=== PATIENT | female | born 1990 | race Caucasian/White ===

== ENCOUNTER 2017-02-07 01:31 | Emergency (ER) | payer OTHER ==
[2017-02-07] MEDS ORDERED: HYDROcodone/APAP 5-325MG 1 EACH TAB PO STA (01:44)
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
--- NOTE | 2017-02-07 02:31 | XR ---
ADDENDUM - Added by Yoseph Bergeron MD on 02/07/2017 2:31 AM (-07:00) INDICATION: 26-year-old female with pain. COMPARISON: None. EXAM: RIGHT ELBOW, 3 views INDICATION: COMPARISON: FINDINGS: 3 views of the right elbow are obtained. Bony structures are intact. Bone mineralization is within normal limits. No effusion noted. Joint spaces are preserved. Soft tissues are within normal limits. No radio-opaque foreign bodies. IMPRESSION: No acute fracture or subluxation identified.
[2017-02-07 02:54] VITALS: BP 122/65; PULSE 76; RESP 18; TEMP 98
== END 2017-02-07 02:54 | disposition home or self-care (01) ==
LOC: EC 01:31
DX: S69.90XA Unspecified injury of unspecified wrist, hand and finger(s), initial encounter (principal); M25.521 Pain in right elbow; F17.200 Nicotine dependence, unspecified, uncomplicated; Z88.1 Allergy status to other antibiotic agents; Z88.6 Allergy status to analgesic agent; Z88.8 Allergy status to other drugs, medicaments and biological substances; W18.30XA Fall on same level, unspecified, initial encounter
CPT/HCPCS: 99283

== ENCOUNTER 2018-03-06 12:03 | Emergency (ER) | payer OTHER ==
[2018-03-06 12:30] VITALS: RESP 18
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
--- NOTE | 2018-03-06 13:54 | XR ---
EXAMINATION TYPE: XR chest 2V DATE OF EXAM ORDERED: 03/06/2018 HISTORY: Pain. REFERENCE: None. FINDINGS: The lungs are clear. Pleural spaces are clear. Heart size is normal. IMPRESSION: NORMAL CHEST.
--- NOTE | 2018-03-06 13:55 | XR ---
EXAMINATION TYPE: XR humerus LT , 2 VIEWS DATE OF EXAM ORDERED: 03/06/2018 HISTORY: Pain. COMPARISON: None. FINDINGS: No long bone fracture is seen. No other acute osseous lesion is identified. IMPRESSION: NORMAL HUMERUS.
[2018-03-06] MEDS ORDERED: LORazepam 1 MG TAB PO STA ×2 (14:10→15:43)
[2018-03-06 15:52] VITALS: BP 123/66; PULSE 80; TEMP 98.1
== END 2018-03-06 15:52 | disposition home or self-care (01) ==
LOC: EC 12:03
DX: S11.91XA Laceration without foreign body of unspecified part of neck, initial encounter (principal); F17.200 Nicotine dependence, unspecified, uncomplicated; Z85.41 Personal history of malignant neoplasm of cervix uteri; Z98.890 Other specified postprocedural states; Z88.1 Allergy status to other antibiotic agents; Z88.4 Allergy status to anesthetic agent; Z88.6 Allergy status to analgesic agent; Z88.8 Allergy status to other drugs, medicaments and biological substances; T71.9XXA Asphyxiation due to unspecified cause, initial encounter; Y04.0XXA Assault by unarmed brawl or fight, initial encounter
CPT/HCPCS: 70450; 70486; 71046; 72125; 99284

== ENCOUNTER 2019-06-21 07:37 | Emergency (ER) | payer OTHER ==
[2019-06-21 07:44] VITALS: RESP 16
[2019-06-21] MEDS ORDERED: LIDOCAINE 1% INJ 10MG/ML (20 ML MDV) SQ ONE (07:47)
[2019-06-21] MEDS ORDERED: DIPH,PERTUS(ACELL)TETVAC-LF 0.5 ML VIAL IM ONE (08:24)
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
[2019-06-21] MEDS ORDERED: ACET/COD 300 MG/30 MG STARTER PACK 6 TAB BTL PO STA (09:02)
[2019-06-21 09:39] VITALS: BP 108/80; PULSE 79; TEMP 98.5
== END 2019-06-21 09:21 | disposition home or self-care (01) ==
LOC: EC 07:37
DX: S01.511A Laceration without foreign body of lip, initial encounter (principal); T74.11XA Adult physical abuse, confirmed, initial encounter; F41.9 Anxiety disorder, unspecified; F31.9 Bipolar disorder, unspecified; Z23 Encounter for immunization; F17.200 Nicotine dependence, unspecified, uncomplicated; Z79.899 Other long term (current) drug therapy; Z88.1 Allergy status to other antibiotic agents; Z88.6 Allergy status to analgesic agent; Z88.8 Allergy status to other drugs, medicaments and biological substances; Z85.41 Personal history of malignant neoplasm of cervix uteri; Y04.0XXA Assault by unarmed brawl or fight, initial encounter; Y92.009 Unspecified place in unspecified non-institutional (private) residence as the place of occurrence of the external cause; Y07.03 Male partner, perpetrator of maltreatment and neglect
CPT/HCPCS: 70486; 70450; 90715; 90471; 99284; 12013; J2001

== ENCOUNTER 2019-06-25 20:00 | Emergency (ER) | payer OTHER ==
[2019-06-25 20:04] VITALS: BP 126/77; TEMP 98.2
[2019-06-25] MEDS ORDERED: LIDOCAINE 1% INJ 10MG/ML (20 ML MDV) SQ ONE (21:09)
[2019-06-25] MEDS ORDERED: ACET/COD 300 MG/30 MG STARTER PACK 6 TAB BTL PO STA (22:18)
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
[2019-06-25 22:28] VITALS: PULSE 93; RESP 18
== END 2019-06-25 22:25 | disposition home or self-care (01) ==
LOC: EC 20:00
DX: S01.511D Laceration without foreign body of lip, subsequent encounter (principal); F41.9 Anxiety disorder, unspecified; F31.9 Bipolar disorder, unspecified; F17.200 Nicotine dependence, unspecified, uncomplicated; Z79.899 Other long term (current) drug therapy; Z88.1 Allergy status to other antibiotic agents; Z88.8 Allergy status to other drugs, medicaments and biological substances; Z88.4 Allergy status to anesthetic agent; Z88.6 Allergy status to analgesic agent; Z85.41 Personal history of malignant neoplasm of cervix uteri; Y09 Assault by unspecified means
CPT/HCPCS: 99282; 12011; J2001

== ENCOUNTER 2021-09-03 08:29 | Emergency (ER) | payer OTHER ==
[2021-09-03 08:40] VITALS: RESP 18; TEMP 98.9
[2021-09-03] MEDS ORDERED: METOCLOPRAMIDE 5 MG/ML 2 ML VIAL IVP STA (08:57)
[2021-09-03] MEDS ORDERED: SODIUM CHLORIDE 0.9% 2,000 ML IV STA (08:57)
[2021-09-03] MEDS ORDERED: diphenhydrAMINE 50 MG/ML 1 ML VIAL IVP STA (08:57)
[2021-09-03 09:18] LABS: Basophils % (A) 0 %; Eosinophils % (A) 0 %; HGB 11.5 gm/dL (11.4-16.0); Lymphocytes # (A) 0.2 k/uL (1.0-4.8); Lymphocytes % (A) 6 %; MCH 33.4 pg (25.0-35.0); MCHC 34.8 g/dL (31.0-37.0); Monocytes # (A) 0.2 k/uL (0-1.0); Monocytes % (A) 7 %; Neutrophils # (A) 2.5 k/uL (1.3-7.7); Neutrophils % (A) 85 %; Platelet Count 151 k/uL (150-450); RBC 3.43 m/uL (3.80-5.40); RDW 13.3 % (11.5-15.5)
[2021-09-03 09:27] LABS: Amorphous Sediment,Urine Rare /hpf; Appearance,Urine Cloudy (Clear); Bacteria,Urine Occasional /hpf; Bilirubin,Urine Negative (Negative); Blood,Urine Negative (Negative); Color,Urine Yellow; Glucose,Urine (UA) Negative (Negative); Ketones,Urine Negative (Negative); Leukocyte Esterase,Urine Trace (Negative); Mucus,Urine Rare /hpf; Nitrite,Urine Positive (Negative); Protein,Urine Negative (Negative); RBC,Urine 1 /hpf (0-5); Specific Gravity,Urine 1.018 (1.001-1.035); Squamous Epithelial Cell,Urine 12 /hpf (0-4); Urobilinogen,Urine <2.0 mg/dL (<2.0); WBC,Urine 2 /hpf (0-5)
[2021-09-03 09:34] LABS: ALT 15 U/L (4-34); AST 18 U/L (14-36); African American GFR (CKD) >90 (>60 ml/min/1.73 sqM); Albumin 3.8 g/dL (3.5-5.0); Alkaline Phosphatase 48 U/L (38-126); Anion Gap 7 mmol/L; Blood Urea Nitrogen 7 mg/dL (7-17); Carbon Dioxide 21 mmol/L (22-30); Chloride 104 mmol/L (98-107); Glucose 94 mg/dL (74-99); Lipase 81 U/L (23-300); Non-African American GFR(CKD) >90 (>60 ml/min/1.73 sqM); Potassium 3.9 mmol/L (3.5-5.1); Sodium 132 mmol/L (137-145); Total Bilirubin 0.2 mg/dL (0.2-1.3); Total Protein 6.7 g/dL (6.3-8.2)
[2021-09-03] MEDS ORDERED: ACETAMINOPHEN TAB 500 MG TAB PO STA (10:33)
--- NOTE | 2021-09-03 10:34 | ED ---
General Adult HPI - General Chief complaint: Back Pain/Injury Stated complaint: 9 wks preg, vomiting & headache Time Seen by Provider: 09/03/21 08:42 Source: patient, RN notes reviewed Mode of arrival: ambulatory Limitations: no limitations - History of Present Illness Initial comments: This a 31-year-old female presents from chief complaint of backache, headache, nausea vomiting. Patient states that she is 9 weeks with twin gestation. Patient states she has no vaginal bleeding vaginal discharge no localized abdominal pain. She states she is achy all over and keep anything down. Denies any sick contacts. Patient is A1. Patient is currently seen Dr. tovar. Patient denies any fevers or chills. - Related Data Home Medications Medication Instructions Recorded Confirmed Jym-Ntnl-Vkwhr Acid 1 cap PO DAILY 09/03/21 09/03/21 [-U Capsule (formulary)] Previous Rx's Medication Instructions Recorded Cephalexin [Keflex] 500 mg PO BID #14 cap 09/03/21 Ondansetron Odt [Zofran Odt] 4 mg PO Q8HR PRN #10 tab 09/03/21 Allergies Allergy/AdvReac Type Severity Reaction Status Date / Time clindamycin Allergy Rash/Hives Verified 09/03/21 08:40 lamotrigine [From Lamictal] Allergy Rash/Hives Verified 09/03/21 08:40 lidocaine Allergy Rash/Hives Verified 09/03/21 08:40 ibuprofen [From Motrin] AdvReac Unknown Verified 09/03/21 08:40 Review of Systems ROS Statement: Those systems with pertinent positive or pertinent negative responses have been documented in the HPI. ROS Other: All systems not noted in ROS Statement are negative. Past Medical History Additional Past Medical History / Comment(s): cervical cancer, History of Any Multi-Drug Resistant Organisms: None Reported Additional Past Surgical History / Comment(s): leep procedure Past Psychological History: Anxiety, Bipolar, Depression Smoking Status: Current every day smoker Past Alcohol Use History: None Reported Past Drug Use History: Marijuana General Exam Limitations: no limitations General appearance: alert, in no apparent distress Head exam: Present: atraumatic, normocephalic, normal inspection Eye exam: Present: normal appearance, PERRL, EOMI. Absent: scleral icterus, conjunctival injection, periorbital swelling ENT exam: Present: normal exam, normal oropharynx, mucous membranes moist Neck exam: Present: normal inspection, full ROM. Absent: tenderness, meningismus, lymphadenopathy Respiratory exam: Present: normal lung sounds bilaterally. Absent: respiratory distress, wheezes, rales, rhonchi, stridor Cardiovascular Exam: Present: normal rhythm, tachycardia, normal heart sounds. Absent: systolic murmur, diastolic murmur, rubs, gallop, clicks GI/Abdominal exam: Present: soft, normal bowel sounds. Absent: distended, tenderness, guarding, rebound, rigid Course Vital Signs 09/03/21 08:37 Temperature 98.9 F Pulse Rate 121 H Respiratory 18 Rate Blood Pressure 103/69 O2 Sat by Pulse 100 Oximetry Medical Decision Making - Medical Decision Making Patient is covid 19 positive. Patient also had nitrite positive urine. Patient be given antibiotics, was given monoclonal antibodies. Patient we discharged on oral antibiotics advise continue Tylenol return for worsening changes symptoms. - Lab Data Result diagrams: 09/03/21 09:10 09/03/21 09:10 Lab Results 09/03/21 09/03/21 09/03/21 Range/Units 09:10 09:10 09:10 WBC 3.0 L (3.8-10.6) k/uL RBC 3.43 L (3.80-5.40) m/uL Hgb 11.5 (11.4-16.0) gm/dL Hct 33.0 L (34.0-46.0) % MCV 96.0 (80.0-100.0) fL MCH 33.4 (25.0-35.0) pg MCHC 34.8 (31.0-37.0) g/dL RDW 13.3 (11.5-15.5) % Plt Count 151 (150-450) k/uL MPV 8.0 Neutrophils % 85 % Lymphocytes % 6 % Monocytes % 7 % Eosinophils % 0 % Basophils % 0 % Neutrophils # 2.5 (1.3-7.7) k/uL Lymphocytes # 0.2 L (1.0-4.8) k/uL Monocytes # 0.2 (0-1.0) k/uL Eosinophils # 0.0 (0-0.7) k/uL Basophils # 0.0 (0-0.2) k/uL Sodium (137-145) mmol/L Potassium (3.5-5.1) mmol/L Chloride (98-107) mmol/L Carbon Dioxide (22-30) mmol/L Anion Gap mmol/L BUN (7-17) mg/dL Creatinine (0.52-1.04) mg/dL Est GFR (CKD-EPI)AfAm (>60 ml/min/1.73 sqM) Est GFR (CKD-EPI)NonAf (>60 ml/min/1.73 sqM) Glucose (74-99) mg/dL Calcium (8.4-10.2) mg/dL Total Bilirubin (0.2-1.3) mg/dL AST (14-36) U/L ALT (4-34) U/L Alkaline Phosphatase (38-126) U/L Total Protein (6.3-8.2) g/dL Albumin (3.5-5.0) g/dL Lipase (23-300) U/L Urine Color Yellow Urine Appearance Cloudy H (Clear) Urine pH 7.0 (5.0-8.0) Ur Specific [place] 1.018 (1.001-1.035) Urine Protein Negative (Negative) Urine Glucose (UA) Negative (Negative) Urine Ketones Negative (Negative) Urine Blood Negative (Negative) Urine Nitrite Positive H (Negative) Urine Bilirubin Negative (Negative) Urine Urobilinogen <2.0 (<2.0) mg/dL Ur Leukocyte Esterase Trace H (Negative) Urine RBC 1 (0-5) /hpf Urine WBC 2 (0-5) /hpf Ur Squamous Epith Cells 12 H (0-4) /hpf Amorphous Sediment Rare H (None) /hpf Urine Bacteria Occasional H (None) /hpf Urine Mucus Rare H (None) /hpf Coronavirus (PCR) Detected A (Not Detectd) 09/03/21 Range/Units 09:10 WBC (3.8-10.6) k/uL RBC (3.80-5.40) m/uL Hgb (11.4-16.0) gm/dL Hct (34.0-46.0) % MCV (80.0-100.0) fL MCH (25.0-35.0) pg MCHC (31.0-37.0) g/dL RDW (11.5-15.5) % Plt Count (150-450) k/uL MPV Neutrophils % % Lymphocytes % % Monocytes % % Eosinophils % % Basophils % % Neutrophils # (1.3-7.7) k/uL Lymphocytes # (1.0-4.8) k/uL Monocytes # (0-1.0) k/uL Eosinophils # (0-0.7) k/uL Basophils # (0-0.2) k/uL Sodium 132 L (137-145) mmol/L Potassium 3.9 (3.5-5.1) mmol/L Chloride 104 (98-107) mmol/L Carbon Dioxide 21 L (22-30) mmol/L Anion Gap 7 mmol/L BUN 7 (7-17) mg/dL Creatinine 0.60 (0.52-1.04) mg/dL Est GFR (CKD-EPI)AfAm >90 (>60 ml/min/1.73 sqM) Est GFR (CKD-EPI)NonAf >90 (>60 ml/min/1.73 sqM) Glucose 94 (74-99) mg/dL Calcium 9.0 (8.4-10.2) mg/dL Total Bilirubin 0.2 (0.2-1.3) mg/dL AST 18 (14-36) U/L ALT 15 (4-34) U/L Alkaline Phosphatase 48 (38-126) U/L Total Protein 6.7 (6.3-8.2) g/dL Albumin 3.8 (3.5-5.0) g/dL Lipase 81 (23-300) U/L Urine Color Urine Appearance (Clear) Urine pH (5.0-8.0) Ur Specific [place] (1.001-1.035) Urine Protein (Negative) Urine Glucose (UA) (Negative) Urine Ketones (Negative) Urine Blood (Negative) Urine Nitrite (Negative) Urine Bilirubin (Negative) Urine Urobilinogen (<2.0) mg/dL Ur Leukocyte Esterase (Negative) Urine RBC (0-5) /hpf Urine WBC (0-5) /hpf Ur Squamous Epith Cells (0-4) /hpf Amorphous Sediment (None) /hpf Urine Bacteria (None) /hpf Urine Mucus (None) /hpf Coronavirus (PCR) (Not Detectd) Disposition Clinical Impression: COVID-19, UTI (urinary tract infection) Disposition: HOME SELF-CARE Condition: Stable Instructions (If sedation given, give patient instructions): Coronavirus Disease 2019 (COVID-19) Additional Instructions: Please return to the Emergency Department if symptoms worsen or any other concerns. Prescriptions: Cephalexin [Keflex] 500 mg PO BID #14 cap Ondansetron Odt [Zofran Odt] 4 mg PO Q8HR PRN #10 tab PRN Reason: Nausea Is patient prescribed a controlled substance at d/c from ED?: No Referrals: Troy Monroe DO [Primary Care Provider] - 1-2 days Time of Disposition: 10:34
[2021-09-03] MEDS ORDERED: SODIUM CHLORIDE 0.9% 50 ML IVPB ONE (10:45)
[2021-09-03] MEDS ORDERED: SOTROVIMAB (EUA) 500 MG in SODIUM CHLORIDE 0.9% 100 ML IVPB ONE (11:00)
[2021-09-03 11:58] VITALS: BP 105/61; PULSE 98
== END 2021-09-03 12:49 | disposition home or self-care (01) ==
LOC: EC 08:29
DX: O98.511 Other viral diseases complicating pregnancy, first trimester (principal); U07.1 COVID-19; O23.41 Unspecified infection of urinary tract in pregnancy, first trimester; N39.0 Urinary tract infection, site not specified; O99.331 Smoking (tobacco) complicating pregnancy, first trimester; F17.200 Nicotine dependence, unspecified, uncomplicated; O99.321 Drug use complicating pregnancy, first trimester; F12.90 Cannabis use, unspecified, uncomplicated; Z3A.09 9 weeks gestation of pregnancy
CPT/HCPCS: 36415; 80053; 83690; 85025; 81001; 87635; 99284; 96365; 96375 ×2; 96361 ×2; J1200; J2765; J0696; Q0247

== ENCOUNTER → 2021-09-18 | Outpatient (CLI) | payer OTHER ==
--- NOTE | 2021-09-18 15:50 | US ---
EXAMINATION TYPE: US OB <= 14 wk twins DATE OF EXAM: 09/18/2021 COMPARISON: NONE CLINICAL HISTORY: O30.001 TWIN PREG, UNSP NUM PLCNTA AMNIO SACS, F. EXAM PERFORMED: Transabdominal (TA) EXAM MEASUREMENTS: GESTATIONAL AGE / DATING A1 Physician Established: (11 weeks/3 days) EDC: 04/06/22 Dates by LMP: LMP unknown Dates by First Scan: No previous this is first scan Dates by Current Scan for Baby A: (12 weeks/2 days) EDC: 03/31/22 Dates by Current Scan for Baby B: (12 weeks/2 days) EDC: 03/31/22 MATERNAL ANATOMY Uterus: 13.1 x 8.1 x 11.2 cm Right Ovary: 2.5 x 1.4 x 2.7 cm Left Ovary: 2.7 x 1.6 x 1.9 cm Post CDS / Adnexa: WNL Presence of free fluid: No Presence of corpus luteal cyst: Not seen Presence of two separate gestational sacs: Yes GESTATION / SURVEY TWIN A CRL: 12w2d - 5.62 cm (wks/days) MSD: WNL (wks/days) Yolk Sac (normal less than 6mm): 0.31 cm Heart Rate: 149 bpm Rhythm: Normal IUP: Viable IUP TWIN B CRL: 12w2d - 5.59 cm (wks/days) MSD: WNL (wks/days) Yolk Sac (normal less than 6mm): 0.34 cm Heart Rate: 146 bpm Rhythm: Normal IUP: Viable IUP Beta HcG (if available): Not available at this time IMPRESSION: Viable twin .
== END | disposition home or self-care (01) ==
LOC: RADUSWWP 14:49
PROVIDERS: ATTEND Obstetrics & Gynecology
DX: O30.001 Twin pregnancy, unspecified number of placenta and unspecified number of amniotic sacs, first trimester (principal); Z3A.12 12 weeks gestation of pregnancy
CPT/HCPCS: 76801; 76802

== ENCOUNTER 2021-11-01 08:17 | Emergency (ER) | payer OTHER ==
[2021-11-01 08:23] VITALS: RESP 18; TEMP 97.9
[2021-11-01] MEDS ORDERED: ACETAMINOPHEN TAB 325 MG TAB PO STA (08:49)
--- NOTE | 2021-11-01 08:55 | ED ---
General Adult HPI - General Chief complaint: Abdominal Pain Stated complaint: 18 wks preg, fall & cramping Time Seen by Provider: 11/01/21 08:45 Source: patient, RN notes reviewed, old records reviewed Mode of arrival: ambulatory Limitations: no limitations - History of Present Illness Initial comments: This is a well-appearing 31-year-old female, 18 weeks with twins, that presents with complaints of abdominal pain since last night after tripping over her cats and falling forward, abdomen first into a rounded countertop. Patient states that she has had right-sided abdominal pain since and has not felt the babies move. She denies any vaginal bleeding or discharge. She denies any nausea vomiting diarrhea or fevers. She states that she is an established patient of Dr. Littlejohn HERPETOLOGIST. -: days(s) (1) Location: abdomen Radiation: non-radiation Severity scale (1-10): 8 Quality: aching Consistency: constant Improves with: none Worsens with: none Associated Symptoms: denies other symptoms Treatments Prior to Arrival: none - Related Data Home Medications Medication Instructions Recorded Confirmed Opt-Mahv-Hfaeb Acid 1 cap PO DAILY 09/03/21 09/03/21 [-U Capsule (formulary)] Previous Rx's Medication Instructions Recorded Cephalexin [Keflex] 500 mg PO BID #14 cap 09/03/21 Ondansetron Odt [Zofran Odt] 4 mg PO Q8HR PRN #10 tab 09/03/21 Allergies Allergy/AdvReac Type Severity Reaction Status Date / Time clindamycin Allergy Rash/Hives Verified 11/01/21 08:23 lamotrigine [From Lamictal] Allergy Rash/Hives Verified 11/01/21 08:23 lidocaine Allergy Rash/Hives Verified 11/01/21 08:23 ibuprofen [From Motrin] AdvReac Unknown Verified 11/01/21 08:23 Patient : Yes Number of weeks : 18 Review of Systems ROS Statement: Those systems with pertinent positive or pertinent negative responses have been documented in the HPI. ROS Other: All systems not noted in ROS Statement are negative. Past Medical History Additional Past Medical History / Comment(s): cervical cancer, History of Any Multi-Drug Resistant Organisms: None Reported Additional Past Surgical History / Comment(s): leep procedure Past Psychological History: Anxiety, Bipolar, Depression Smoking Status: Current every day smoker Past Alcohol Use History: None Reported Past Drug Use History: Marijuana General Exam Limitations: no limitations General appearance: alert, in no apparent distress Head exam: Present: atraumatic Eye exam: Present: EOMI, other (brusing to right upper eyelid). Absent: periorbital swelling, periorbital tenderness ENT exam: Present: normal exam, normal oropharynx, mucous membranes moist Respiratory exam: Present: normal lung sounds bilaterally. Absent: respiratory distress, accessory muscle use Cardiovascular Exam: Present: regular rate, normal rhythm, normal heart sounds GI/Abdominal exam: Present: soft, distended, tenderness (right mid), normal bowel sounds. Absent: guarding, rebound, rigid Extremities exam: Present: normal capillary refill Back exam: Present: normal inspection, full ROM. Absent: tenderness, CVA tenderness (R), CVA tenderness (L), rash noted Neurological exam: Present: alert, oriented X3 Psychiatric exam: Present: normal affect, normal mood Skin exam: Present: warm, dry, normal color. Absent: rash, cyanosis, diaphoretic Course Vital Signs 11/01/21 11/01/21 08:19 10:29 Temperature 97.9 F Pulse Rate 98 80 Respiratory 18 18 Rate Blood Pressure 113/72 110/70 O2 Sat by Pulse 98 100 Oximetry Medical Decision Making - Medical Decision Making 31-year-old female presents after falling into a rounded counter yesterday stating she is and does not feel the twins move. ultrasound shows twin A with a heart rate of 143, twin B with a heart rate of 147 UA shows trace protein, no evidence of infection. I did speak with Dr. Shahid demand generation manager for HERPETOLOGIST who states the patient can be discharged home and keep her normally scheduled appointments. Patient denies any pain at this time. Denies any vaginal bleeding. Vital signs are stable. Patient states that she lives at home with her significant other states that she is in a safe relationship. I directed patient to return to the emergency room with any new or concerning symptoms including pain, vaginal bleeding. She is agreeable to this plan of care - Lab Data Lab Results 11/01/21 Range/Units 09:50 Urine Color Yellow Urine Appearance Cloudy H (Clear) Urine pH 7.0 (5.0-8.0) Ur Specific [place] 1.019 (1.001-1.035) Urine Protein Trace H (Negative) Urine Glucose (UA) Negative (Negative) Urine Ketones Negative (Negative) Urine Blood Negative (Negative) Urine Nitrite Negative (Negative) Urine Bilirubin Negative (Negative) Urine Urobilinogen <2.0 (<2.0) mg/dL Ur Leukocyte Esterase Negative (Negative) Urine WBC 2 (0-5) /hpf Ur Squamous Epith Cells 5 H (0-4) /hpf Amorphous Sediment Rare H (None) /hpf Urine Mucus Rare H (None) /hpf Disposition Clinical Impression: Disposition: HOME SELF-CARE Condition: Good Instructions (If sedation given, give patient instructions): (ED) Additional Instructions: Follow-up with your HERPETOLOGIST as scheduled. Return to the emergency room with any new or concerning symptoms including pain or vaginal bleeding. Is patient prescribed a controlled substance at d/c from ED?: No Referrals: Troy Monroe DO [Primary Care Provider] - 1-2 days Time of Disposition: 10:24
--- NOTE | 2021-11-01 10:00 | US ---
EXAMINATION TYPE: US OB >= 14 wk twins DATE OF EXAM: 11/01/2021 COMPARISON: 09/18/2021 CLINICAL HISTORY: 31-year-old female fall . The patient fell yesterday and bumped belly on counter. P elvic pain GESTATIONAL AGE / DATING Physician Established: (17 weeks/5 days) EDC: 04/06/22 Dates by LMP: (17 weeks/5 days) EDC: 04/06/22 Dates by First Scan: (18 weeks/4 days) EDC: 03/31/22 Dates by Current Scan for Baby A: (18 weeks/2 days) (2 days less growth than compared to 09/18/2021) EDC: 04/02/22 Dates by Current Scan for Baby B: (17 weeks/6 days) (5 days less growth than compared to 09/18/2021) EDC: 04/05/22 FINDINGS: GENERAL TWIN SURVEY TWIN A LOCATION in regards to maternal abd: left TWIN B LOCATION in regards to maternal abd: right MEMBRANE SEEN: yes, measuring 2 mm thick. However, there is no well-defined lambda sign. CERVICAL LENGTH (transabdominal; norm > 3.0cm): 3.3 cm TWIN A: SURVEY/BIOMETRY PLACENTA: Anterior PREVIA: No previa NATE:? 10.5 cm?Normal PRESENTATION: Vertex LIE: Transverse with head maternal LT BPD: 4.0 cm 18 weeks / 2 days HC: 15.3 cm 18 weeks / 2 days AC: 13.0 cm 18 weeks / 3 days FL: 2.7 cm 18 weeks / 2 days ESTIMATED WEIGHT IN GRAMS: 237 grams ESTIMATED WEIGHT IN LBS/OZS: 0 lbs. 8 oz. WEIGHT PERCENTAGE BASED ON ESTABLISHED DATES: 84.5% HC/AC: 1.18 Normal FL/AC: 21.0 Normal HEART RATE: 143 bpm RHYTHM: Normal TWIN B: SURVEY/BIOMETRY PRESENTATION: Breech LIE: Transverse with head maternal RT BPD: 3.9 cm 17 weeks / 6 days HC: 14.6 cm 17 weeks / 5 days AC: 12.5 cm 18 weeks / 1 days FL: 2.6 cm 17 weeks / 6 days ESTIMATED WEIGHT IN GRAMS: 218 grams ESTIMATED WEIGHT IN LBS/OZS: 0 lbs. 8 oz. WEIGHT PERCENTAGE BASED ON ESTABLISHED DATES: 61.1% HC/AC: 1.17 Normal FL/AC: 20.8 Normal HEART RATE: 147 bpm RHYTHM: Normal IMPRESSION: 1. Live twin gestation. Difficulty determining between dichorionic diamnionic versus monochorionic di amniotic as there is a membrane measuring 2 mm thick but no well-defined lambda sign. 2. Estimated gestational age by LMP is 17 weeks 5 days. Measurements are concordant though there has been 2 days less growth from 09/18/2021 for twin A (85th percentile) and 5 days less growth for twin B (61st percentile). Follow-up as clinically indicated. 3. Complete survey recommended at 18-20 weeks.
[2021-11-01 10:08] LABS: Amorphous Sediment,Urine Rare /hpf; Appearance,Urine Cloudy (Clear); Bilirubin,Urine Negative (Negative); Blood,Urine Negative (Negative); Color,Urine Yellow; Glucose,Urine (UA) Negative (Negative); Ketones,Urine Negative (Negative); Leukocyte Esterase,Urine Negative (Negative); Mucus,Urine Rare /hpf; Nitrite,Urine Negative (Negative); Protein,Urine Trace (Negative); Specific Gravity,Urine 1.019 (1.001-1.035); Squamous Epithelial Cell,Urine 5 /hpf (0-4); Urobilinogen,Urine <2.0 mg/dL (<2.0); WBC,Urine 2 /hpf (0-5)
[2021-11-01 10:31] VITALS: BP 110/70; PULSE 80
== END 2021-11-01 10:31 | disposition home or self-care (01) ==
LOC: EC 08:17
DX: O26.892 Other specified pregnancy related conditions, second trimester (principal); O99.342 Other mental disorders complicating pregnancy, second trimester; R10.9 Unspecified abdominal pain; F41.9 Anxiety disorder, unspecified; F31.9 Bipolar disorder, unspecified; F17.200 Nicotine dependence, unspecified, uncomplicated; F12.90 Cannabis use, unspecified, uncomplicated; Z88.1 Allergy status to other antibiotic agents; Z85.41 Personal history of malignant neoplasm of cervix uteri; Z3A.18 18 weeks gestation of pregnancy; W18.30XA Fall on same level, unspecified, initial encounter
CPT/HCPCS: 76805; 76810; 81001; 99284

== ENCOUNTER 2021-11-13 10:40 | Emergency (ER) | payer OTHER ==
--- NOTE | 2021-11-13 12:14 | ED ---
General Adult HPI - General Chief complaint: Fall Stated complaint: 19wks preg, fell down 4 stairs Time Seen by Provider: 11/13/21 11:20 Source: patient, family Mode of arrival: ambulatory Limitations: no limitations - History of Present Illness Initial comments: This 31-year-old female who is 19 weeks with twins presents to the emergency Department after she slipped on ice this morning outside. Patient states she was going down 3 wooden steps on her porch this morning when she slipped on ice, falling onto her right hip. Patient denies hitting her head or any loss of consciousness. Patient states she is having some mild right hip pain along with mild right lower paraspinal pain. She denies any loss of range of motion or loss of sensation of hip, back or leg. Patient states her neck did jolt forward when she fell but she denies hitting her head or neck on the steps. Patient denies any neck pain at this time. Patient states she is here due to having some mild abdominal cramping that started just after the fall, however she is unsure if it is just radiating from her back the cramping is only on the right side. She states she wants to be sure the babies are okay and is requesting heart tones. Patient states she does not want any x-rays as she does not want to expose the babies to radiation. Patient stated she would return if she experiences any crease pain and stated she would follow-up with her primary care provider if her right hip or lower back pain worsens. Patient denies any nausea or vomiting. Patient denies any vaginal bleeding. Patient denies any chest pain, shortness of breath, change in bowel or bladder/bowel or bladder retention/incontinence, saddle anesthesia, headache, lightheadedness, dizziness, change in vision, neck pain. - Related Data Home Medications Medication Instructions Recorded Confirmed Gcg-Ismu-Nuhvs Acid 1 cap PO DAILY 09/03/21 11/13/21 [-U Capsule (formulary)] Acetaminophen Tab [Tylenol] 325 - 650 mg PO Q4H PRN 11/13/21 11/13/21 Aspirin EC [Ecotrin Low Dose] 81 mg PO DAILY 11/13/21 11/13/21 Allergies Allergy/AdvReac Type Severity Reaction Status Date / Time clindamycin Allergy Rash/Hives Verified 11/13/21 12:07 lamotrigine [From Lamictal] Allergy Rash/Hives Verified 11/13/21 12:07 lidocaine Allergy Rash/Hives Verified 11/13/21 12:07 ibuprofen [From Motrin] AdvReac Unknown Verified 11/13/21 12:07 Review of Systems ROS Statement: Those systems with pertinent positive or pertinent negative responses have been documented in the HPI. ROS Other: All systems not noted in ROS Statement are negative. Past Medical History Additional Past Medical History / Comment(s): cervical cancer, History of Any Multi-Drug Resistant Organisms: None Reported Additional Past Surgical History / Comment(s): leep procedure Past Psychological History: Anxiety, Bipolar, Depression Smoking Status: Current every day smoker Past Alcohol Use History: None Reported Past Drug Use History: Marijuana General Exam Limitations: no limitations General appearance: alert, in no apparent distress Head exam: Present: atraumatic, normocephalic, normal inspection Eye exam: Present: normal appearance, PERRL, EOMI. Absent: scleral icterus, conjunctival injection, periorbital swelling Pupils: Present: normal accommodation ENT exam: Present: normal exam, mucous membranes moist Neck exam: Present: normal inspection, full ROM. Absent: tenderness, meningismus, lymphadenopathy Respiratory exam: Present: normal lung sounds bilaterally. Absent: respiratory distress, wheezes, rales, rhonchi, stridor, chest wall tenderness Cardiovascular Exam: Present: regular rate, normal rhythm, normal heart sounds. Absent: systolic murmur, diastolic murmur, rubs, gallop, clicks GI/Abdominal exam: Present: soft, normal bowel sounds. Absent: distended, tenderness, guarding, rebound, rigid Extremities exam: Present: normal inspection, full ROM (Patient able to fully flex and extend bilateral lower extremities. No loss of range of motion or sensation of either lower extremity or lower back), tenderness (Lateral side of right hip tender to deep palpation. DP pulses intact. Patient is neurovascularly intact without any deficits. Patient with full range of motion of right lower extremity, back and neck.), normal capillary refill. Absent: p edal edema, joint swelling, calf tenderness Back exam: Present: normal inspection, full ROM, paraspinal tenderness (Lumbar paraspinal tenderness on right side). Absent: CVA tenderness (R), CVA tenderness (L), vertebral tenderness Neurological exam: Present: alert, oriented X3, CN II-XII intact, normal gait Psychiatric exam: Present: normal affect, normal mood Skin exam: Present: warm, dry, intact, normal color. Absent: rash Course Vital Signs 11/13/21 11/13/21 10:50 13:21 Temperature 98.6 F 99.1 F Pulse Rate 98 79 Respiratory 18 14 Rate Blood Pressure 113/73 109/62 O2 Sat by Pulse 100 100 Oximetry Medical Decision Making - Medical Decision Making This 31-year-old female who is 19 weeks with twins presents emergency department with abdominal cramping after a fall earlier this morning. Denies any vaginal bleeding at this time. Patient did refuse x-rays due to not wanting to expose the twins to radiation. OB did come down to the ER to perform heart tones and did auscultate 150 and 146 bpm heart rate, however she suggested I place an abdominal ultrasound due to her not being able to tell if that was 1 heart rate or 2 different heart rates due to the patient carrying twins. Ultrasound obtained with impression of dichorionic diamniotic twin live intrauterine gestation with satisfactory heart tones documented in twin A and twin B. Fetus a heart rate 136 bpm with a normal rhythm and fetus be with 152 bpm with a normal rhythm. She was instructed to call her MANAGED CARE MANAGER after leaving the emergency department to schedule follow-up appointment. Patient was instructed to follow up her primary care provider next 24-48 hours. Strict return precautions were discussed. Patient related to plan. Patient sent home in stable condition. Case discussed in detail with my attending, Dr. Wright. - Radiology Data Radiology results: report reviewed, image reviewed Disposition Clinical Impression: Fall, , twins Disposition: HOME SELF-CARE Condition: Stable Instructions (If sedation given, give patient instructions): Fall Prevention (ED) Additional Instructions: Please follow-up with your MANAGED CARE MANAGER in next 24-48 hours. Follow-up with primary care provider in next 24-48 hours. Return to the emergency department with any new, worsening, or concerning symptoms. Is patient prescribed a controlled substance at d/c from ED?: No Referrals: Troy Monroe DO [Primary Care Provider] - 1-2 days Myrna Littlejohn DO [Doctor of Osteopathic Medicine] - 1-2 days Time of Disposition: 14:39
[2021-11-13 13:24] VITALS: BP 109/62; PULSE 79; RESP 14; TEMP 99.1
[2021-11-13] MEDS ORDERED: ACETAMINOPHEN TAB 325 MG TAB PO STA (14:26)
--- NOTE | 2021-11-13 14:29 | US ---
EXAMINATION TYPE: US OB limited DATE OF EXAM: 11/13/2021 COMPARISON: US 12 days ago. CLINICAL HISTORY: fall- confirm heart rate in twins. EC patient stated fell on right side today EXAM PERFORMED: GESTATIONAL AGE / DATING Physician Established: EDC: 04/06/22 SURVEY: membrane seen between Fetus A and Fetus B CERVICAL LENGTH (transabdominal: norm > 3.0cm): 3.4 cm Fetus A position: Breech and Maternal left heart Rate Fetus A: 136 bpm RHYTHM: Normal Fetus B Position : maternal right Heart Rate Fetus B: 152bpm Rhythm: normal IMPRESSION: Redemonstration of dichorionic diamniotic twin live intrauterine gestation with satisfac tory heart tones once again documented in twin A and twin B.
== END 2021-11-13 15:07 | disposition home or self-care (01) ==
LOC: EC 10:40
DX: O9A.212 Injury, poisoning and certain other consequences of external causes complicating pregnancy, second trimester (principal); F17.200 Nicotine dependence, unspecified, uncomplicated; Z88.1 Allergy status to other antibiotic agents; Z88.8 Allergy status to other drugs, medicaments and biological substances; Z88.4 Allergy status to anesthetic agent; Z88.6 Allergy status to analgesic agent; W00.0XXA Fall on same level due to ice and snow, initial encounter; Z3A.19 19 weeks gestation of pregnancy
CPT/HCPCS: 76815; 99284

== ENCOUNTER 2021-12-19 22:32 | Outpatient (CLI) | payer OTHER ==
[2021-12-19 23:58] VITALS: BP 115/58; PULSE 88; RESP 16; TEMP 98.1
--- NOTE | 2021-12-24 13:19 | P.MSEPDOC ---
Presenting Problems - Arrival Data Date of Arrival on Unit: 12/19/21 Time of Arrival on Unit: 22:32 Mode of Transport: Ambulatory - Complaint OB-Reason for Admission/Chief Complaint: Pain Comment: pt complains of pelvic pressure and pain rating it 7/10 constant Medical History - Information : 4 Para: 1 Term: 1 : 0 Abortions: Spontaneous or Elective: 2 Number of Living Children: 1 - Gestational Age Gestational Age by ROSEMARIE (wks/days): 24 Weeks and 4 Days Review of Systems - Review of Systems Constitutional: No problems Breast: No problems ENT: No problems Cardiovascular: No problems Respiratory: No problems Gastrointestinal: No problems Genitourinary: No problems Musculoskeletal: No problems Neurological: No problems Skin: No problems Vital Signs - Temperature Temperature: 98.1 F Temperature Source: Oral - Pulse Pulse Oximetery Pulse Rate: 88 Pulse Assessment Method: Pulse Oximetry - Respirations Respiratory Rate: 16 Oxygen Delivery Method: Room Air O2 Sat by Pulse Oximetry: 99 - Blood Pressure Right Arm Blood Pressure: 115/58 Blood Pressure Mean: 77 Blood Pressure Source: Automatic Cuff Physician Notification - Physician Notified Physician Notified Date: 12/19/21 Physician Notified Time: 23:25 Physician: Kendal Pereyra Order Received: Yes (d/c home) Maternal Triage Index - Maternal Triage Index Presenting for scheduled procedure w/no complaint: No - Stat/Priority 1 Stat Priority 1: No - Urgent/Priority 2 Urgent Priority 2: No - Prompt/Priority 3 Prompt Priority 3: No - Non-Urgent/Priority 4 Non-Urgent Priority 4: Yes Criteria Met for Priority 4: pt complains of pelvic pain and pressure. Disposition - Disposition OB Disposition: Discharge to home Discharge Date: 12/19/21 Discharge Time: 23:39 I agree with the RN Medical Screening Exam: Yes Case reviewed; plan agreed upon as documented in EMR&OBIX.: Yes Diagnosis: PELVIC AND PERINEAL PAIN
== END 2021-12-19 22:39 | disposition home or self-care (01) ==
LOC: FBPOP 22:32
PROVIDERS: ATTEND Obstetrics & Gynecology
DX: O26.892 Other specified pregnancy related conditions, second trimester (principal); R10.2 Pelvic and perineal pain; Z3A.24 24 weeks gestation of pregnancy; Z88.1 Allergy status to other antibiotic agents; Z88.6 Allergy status to analgesic agent; Z88.4 Allergy status to anesthetic agent; Z88.8 Allergy status to other drugs, medicaments and biological substances
CPT/HCPCS: 99213

== ENCOUNTER 2022-01-14 13:22 | Outpatient (CLI) | payer OTHER ==
[2022-01-14 14:18] VITALS: BP 109/63; PULSE 84; RESP 18; TEMP 97.6
--- NOTE | 2022-01-14 19:03 | P.MSEPDOC ---
Presenting Problems - Arrival Data Date of Arrival on Unit: 01/14/22 Time of Arrival on Unit: 13:22 Mode of Transport: Ambulatory - Complaint OB-Reason for Admission/Chief Complaint: Possible Onset of Labor Comment: vaginal and ligament and back pain Medical History - Information : 4 Para: 1 Term: 1 : 0 Abortions: Spontaneous or Elective: 2 Number of Living Children: 1 - Gestational Age Gestational Age by ROSEMARIE (wks/days): 28 Weeks and 2 Days - History Complications: Multiple , Breech Review of Systems - Review of Systems Constitutional: No problems Breast: No problems ENT: No problems Cardiovascular: No problems Respiratory: No problems Gastrointestinal: No problems Genitourinary: No problems Musculoskeletal: No problems Neurological: No problems Skin: No problems Vital Signs - Temperature Temperature: 97.6 F Temperature Source: Axillary - Pulse Right Pulse Rate: 84 Pulse Assessment Method: Automatic Cuff - Respirations Respiratory Rate: 18 Oxygen Delivery Method: Room Air O2 Sat by Pulse Oximetry: 99 - Blood Pressure Right Arm Blood Pressure: 109/63 Blood Pressure Mean: 78 Blood Pressure Source: Automatic Cuff Medical Screen Scoring - Cervical Exam Dilation (cm): 1 Effacement (%): 0 Station: -3 Membranes: Intact - Uterine Contractions Frequency From (mins): 0 Frequency To (mins): 0 - Assessment - Baby A Baseline FHR: 140 Heart Rate - NICHD Category: Category I (Normal) NST: Reactive - Assessment - Baby B Baseline FHR: 140 Heart Rate - NICHD Category: Category I (Normal) NST: Reactive Physician Notification - Physician Notified Physician Notified Date: 01/14/22 Physician Notified Time: 14:08 Physician: Prabhu Shahid New Order Received: Yes (Dr. Shahid to bedside to speakwith patient, dc with instruction) Maternal Triage Index - Non-Urgent/Priority 4 Non-Urgent Priority 4: Yes Criteria Met for Priority 4: 28 week twin preg, ligament/vaginal/back pain, no contractions, no cervical change Disposition - Disposition OB Disposition: Triage, Discharge to home, Written follow up instructions reviewed Discharge Date: 01/14/22 Discharge Time: 14:18 I agree with the RN Medical Screening Exam: Yes Case reviewed; plan agreed upon as documented in EMR&OBIX.: Yes Diagnosis: LOW BACK PAIN, UNSPECIFIED (Patient presents to labor and delivery with complaints of low back pain and pelvic pain. Patient apparently was here 2 weeks ago with similar complaints. Cervix is unchanged. Patient is having no contractions. Evaluation appears to be consistent with discomfort of . Patient is instructed follow-up with Dr. Wilburn in 1 week. She will return if she had any vaginal bleeding, leaking of fluid, or greater than 6 contractions per hour.)
== END 2022-01-14 14:19 ==
LOC: FBPOP 13:22
PROVIDERS: ATTEND Obstetrics & Gynecology
DX: O99.891 Other specified diseases and conditions complicating pregnancy (principal); M54.50 Low back pain, unspecified; O99.333 Smoking (tobacco) complicating pregnancy, third trimester; F17.210 Nicotine dependence, cigarettes, uncomplicated; Z3A.28 28 weeks gestation of pregnancy; Z88.1 Allergy status to other antibiotic agents; Z88.8 Allergy status to other drugs, medicaments and biological substances; Z88.4 Allergy status to anesthetic agent; Z88.6 Allergy status to analgesic agent
CPT/HCPCS: 59025; G0463; 99213

== ENCOUNTER 2022-01-23 07:22 | Outpatient (CLI) | payer OTHER ==
[2022-01-23 08:44] VITALS: BP 117/61; PULSE 82; RESP 18; TEMP 98.7
--- NOTE | 2022-02-09 16:59 | P.MSEPDOC ---
Presenting Problems - Arrival Data Date of Arrival on Unit: 01/23/22 Time of Arrival on Unit: 07:22 Mode of Transport: Ambulatory - Complaint OB-Reason for Admission/Chief Complaint: Rule Out PROM Comment: Pt states that she does not know if her water broke. She had some discharge last night and this morning. Medical History - Information : 4 Para: 1 Term: 1 Abortions: Spontaneous or Elective: 1 Number of Living Children: 1 - Gestational Age Gestational Age by ROSEMARIE (wks/days): 29 Weeks and 4 Days - History Complications: Smoker Review of Systems - Review of Systems Constitutional: No problems Breast: No problems ENT: No problems Cardiovascular: No problems Respiratory: No problems Gastrointestinal: No problems Genitourinary: No problems Musculoskeletal: No problems Neurological: No problems Skin: No problems Vital Signs - Temperature Temperature: 98.7 F Temperature Source: Oral - Pulse Right Pulse Rate: 82 Pulse Assessment Method: Automatic Cuff - Respirations Respiratory Rate: 18 Oxygen Delivery Method: Room Air O2 Sat by Pulse Oximetry: 100 - Blood Pressure Right Arm Blood Pressure: 117/61 Blood Pressure Mean: 79 Blood Pressure Source: Automatic Cuff Medical Screen Scoring - Assessment - Baby A Baseline FHR: 130 Heart Rate - NICHD Category: Category I (Normal) NST: Reactive - Assessment - Baby B Baseline FHR: 135 Heart Rate - NICHD Category: Category I (Normal) NST: Reactive Physician Notification - Physician Notified Physician Notified Date: 01/23/22 Physician Notified Time: 08:21 Physician: Myrna Littlejohn Order Received: Yes - Notification Comment Comment: Pt states she is here with c/o discharge. last night and this morning. Pt states that it was a. thin clear, and slightly mucous like discharge ; she. is concerned that her water may have broke. Denies. bleeding, no intercourse in the last 24hr, denies any. other complications, feeling movement. RN called and reported to Dr. Littlejohn on. maternal/ status, reason for visit, FHTs. reactive and category 1, occasional irregular cxns -. some irritability noted. Reported to Dr. Littlejohn. amnisure negative, vaginal discharge discussed with. Dr. Littlejohn. Pt likely has a yeast infection, pt may. call and schedule to see Dr. Littlejohn sooner than her. next apt on 01/[address] Littlejohn evaluate and treat. if necessary. Order received for pt to DC home. Maternal Triage Index - Maternal Triage Index Presenting for scheduled procedure w/no complaint: No - Stat/Priority 1 Stat Priority 1: No - Urgent/Priority 2 Urgent Priority 2: Yes Provider Notified: Myrna Littlejohn Provider Notified Time: 08:21 Criteria Met for Priority 2: Pt is 29 4/7 weeks, states that her water may be broke (had some discharge last night and this morning) Disposition - Disposition OB Disposition: Discharge to home Discharge Date: 01/23/22 Discharge Time: 08:29 I agree with the RN Medical Screening Exam: Yes Case reviewed; plan agreed upon as documented in EMR&OBIX.: Yes Diagnosis: TWIN , DICHORIONIC/DIAMNIOTIC, THIRD TRIMESTER
== END 2022-01-23 08:29 | disposition home or self-care (01) ==
LOC: FBPOP 07:22
PROVIDERS: ATTEND Obstetrics & Gynecology
DX: O30.043 Twin pregnancy, dichorionic/diamniotic, third trimester (principal); Z3A.29 29 weeks gestation of pregnancy; Z88.1 Allergy status to other antibiotic agents; Z88.6 Allergy status to analgesic agent; Z88.4 Allergy status to anesthetic agent; Z88.8 Allergy status to other drugs, medicaments and biological substances; Z87.891 Personal history of nicotine dependence
CPT/HCPCS: 59025; 84112; G0463; 99213

== ENCOUNTER 2022-01-25 10:21 | Outpatient (CLI) | payer OTHER ==
[2022-01-25 11:01] LABS: Appearance,Urine Clear (Clear); Bilirubin,Urine Negative (Negative); Blood,Urine Negative (Negative); Color,Urine Yellow; Glucose,Urine (UA) Negative (Negative); Ketones,Urine Negative (Negative); Leukocyte Esterase,Urine Negative (Negative); Nitrite,Urine Negative (Negative); PH, Urine 6.5 (5.0-8.0); Protein,Urine Trace (Negative); Urobilinogen,Urine <2.0 mg/dL (<2.0)
[2022-01-25] MEDS ORDERED: LACTATED RINGERS 1,000 ML IV ONE (11:15)
[2022-01-25 12:11] VITALS: BP 107/60; PULSE 93; RESP 17; TEMP 97.2
--- NOTE | 2022-01-25 12:32 | P.MSEPDOC ---
Presenting Problems - Arrival Data Date of Arrival on Unit: 01/25/22 Time of Arrival on Unit: 10:21 Mode of Transport: Ambulatory - Complaint OB-Reason for Admission/Chief Complaint: Pain Comment: pt presents to triage for abd cramping and watery diarreha for the last 3 days Medical History - Information : 4 Para: 1 Term: 1 : 0 Abortions: Spontaneous or Elective: 2 Number of Living Children: 1 - Gestational Age Gestational Age by ROSEMARIE (wks/days): 29 Weeks and 6 Days Review of Systems - Review of Systems Constitutional: No problems Breast: No problems ENT: No problems Cardiovascular: No problems Respiratory: No problems Gastrointestinal: No problems Genitourinary: No problems Musculoskeletal: No problems Neurological: No problems Skin: No problems Vital Signs - Temperature Temperature: 97.2 F Temperature Source: Temporal Artery Scan - Pulse Right Brachial Pulse Rate: 93 Pulse Assessment Method: Automatic Cuff - Respirations Respiratory Rate: 17 Oxygen Delivery Method: Room Air - Blood Pressure Right Arm Blood Pressure: 107/60 Blood Pressure Mean: 75 Blood Pressure Source: Automatic Cuff Medical Screen Scoring - Cervical Exam Dilation (cm): 1.5 Effacement (%): 50 Station: -3 Membranes: Intact - Uterine Contractions Intensity: Mild Resting: Soft to palpation - Assessment - Baby A Baseline FHR: 135 Heart Rate - NICHD Category: Category I (Normal) NST: Reactive - Assessment - Baby B Baseline FHR: 130 Heart Rate - NICHD Category: Category I (Normal) NST: Reactive Physician Notification - Physician Notified Physician Notified Date: 01/25/22 Physician Notified Time: 10:58 Physician: Myrna Littlejohn Order Received: Yes - Notification Comment Comment: UA was sent, cervical exam performed with no change from former exam, ivf given, discharged home with instructions to follow up on 01/28 at scheduled appt Maternal Triage Index - Maternal Triage Index Presenting for scheduled procedure w/no complaint: No - Stat/Priority 1 Stat Priority 1: No - Urgent/Priority 2 Urgent Priority 2: No - Prompt/Priority 3 Prompt Priority 3: Yes Criteria Met for Priority 3: pt presents to triage for abd cramping and watery diarreha for the last 3 days, GA 29 01/21 Disposition - Disposition OB Disposition: Triage, Discharge to home, Written follow up instructions reviewed Discharge Date: 01/25/22 Discharge Time: 12:00 I agree with the RN Medical Screening Exam: Yes Case reviewed; plan agreed upon as documented in EMR&OBIX.: Yes Diagnosis: DIARRHEA, UNSPECIFIED
== END 2022-01-25 12:00 | disposition home or self-care (01) ==
LOC: FBPOP 10:21
PROVIDERS: ATTEND Obstetrics & Gynecology
DX: O26.893 Other specified pregnancy related conditions, third trimester (principal); R19.7 Diarrhea, unspecified; Z3A.30 30 weeks gestation of pregnancy
CPT/HCPCS: 59025; 96360; 81003; G0463; 99214

== ENCOUNTER 2022-02-03 15:21 | Outpatient (CLI) | payer OTHER ==
[2022-02-03] MEDS: LACTATED RINGERS 1,000 ML IV SCH ×2 (16:35→17:34)
[2022-02-03 18:23] VITALS: BP 114/60; PULSE 98; RESP 18; TEMP 97.7
--- NOTE | 2022-02-04 08:07 | P.MSEPDOC ---
Presenting Problems - Arrival Data Date of Arrival on Unit: 02/03/22 Time of Arrival on Unit: 15:21 Mode of Transport: Ambulatory - Complaint OB-Reason for Admission/Chief Complaint: Other Comment: pt arrived for loss of mucous plug, rectal pressure, and stated she was feeling some cramping every 5 minutes. Medical History - Information : 4 Para: 1 Term: 1 : 0 Abortions: Spontaneous or Elective: 2 - Gestational Age Gestational Age by ROSEMARIE (wks/days): 31 Weeks and 1 Days - History Complications: Smoker Review of Systems - Review of Systems Constitutional: No problems Breast: No problems ENT: No problems Cardiovascular: No problems Respiratory: No problems Gastrointestinal: No problems Genitourinary: No problems Musculoskeletal: No problems Neurological: No problems Skin: No problems Vital Signs - Temperature Temperature: 97.7 F Temperature Source: Temporal Artery Scan - Pulse Right Pulse Oximetery Pulse Rate: 98 Pulse Assessment Method: Pulse Oximetry - Respirations Respiratory Rate: 18 Oxygen Delivery Method: Room Air O2 Sat by Pulse Oximetry: 97 - Blood Pressure Right Arm Blood Pressure: 114/60 Blood Pressure Mean: 78 Blood Pressure Source: Automatic Cuff Medical Screen Scoring - Cervical Exam Dilation (cm): 2.5 Effacement (%): 50 Station: -2 Membranes: Intact - Uterine Contractions Frequency From (mins): 2 Frequency To (mins): 10 Duration From (seconds): 40 Duration To (seconds): 60 Intensity: Moderate Resting: Soft to palpation - Assessment - Baby A Baseline FHR: 135 Heart Rate - NICHD Category: Category I (Normal) NST: Reactive - Assessment - Baby B Baseline FHR: 145 Heart Rate - NICHD Category: Category I (Normal) NST: Reactive Physician Notification - Physician Notified Physician Notified Date: 02/03/22 Physician Notified Time: 18:15 Physician: [id number] New Order Received: Yes - Notification Comment Comment: IV fluids and ffn Maternal Triage Index - Maternal Triage Index Presenting for scheduled procedure w/no complaint: No - Stat/Priority 1 Stat Priority 1: No - Urgent/Priority 2 Urgent Priority 2: Yes Provider Notified: Kendal Pereyra Provider Notified Time: 16:26 Criteria Met for Priority 2: C/O AND DETECTABLE UTERINE CONTRACTIONS AT 31 1/7 WEEKS Disposition - Disposition OB Disposition: Discharge to home Discharge Date: 02/03/22 Discharge Time: 18:15 I agree with the RN Medical Screening Exam: Yes Case reviewed; plan agreed upon as documented in EMR&OBIX.: Yes Comments: fibronectin had been sent and lab had taken over an hour to process this, when called, the lab said it was going to be another 45 minutes. At this point patient's contractions were 810 minutes apart and she was no longer feeling them. Her cervix remained unchanged after 2 hours and she was sent home. 45 minutes later the hymenectomy and did come back positive. I will have my office staff call the patient today to offer steroids. Diagnosis: LABOR WITHOUT DELIVERY, THIRD TRIMESTER
== END 2022-02-03 18:15 | disposition home or self-care (01) ==
LOC: FBPOP 15:21
PROVIDERS: ATTEND Obstetrics & Gynecology
DX: O60.03 Preterm labor without delivery, third trimester (principal); O99.333 Smoking (tobacco) complicating pregnancy, third trimester; F17.200 Nicotine dependence, unspecified, uncomplicated; Z3A.31 31 weeks gestation of pregnancy; Z88.1 Allergy status to other antibiotic agents; Z88.8 Allergy status to other drugs, medicaments and biological substances; Z88.4 Allergy status to anesthetic agent; Z88.6 Allergy status to analgesic agent
CPT/HCPCS: 96360; 96361; 82731; G0463; 99214

== ENCOUNTER 2022-02-04 08:57 | Outpatient (CLI) | payer OTHER ==
[2022-02-04] MEDS ORDERED: BETAMET ACET-BETAMETH SOD PHOS 6 MG/ML MDV IM SCH (09:45)
[2022-02-04] MEDS: LACTATED RINGERS 1,000 ML IV SCH ×2 (10:04→11:34)
[2022-02-04 10:34] VITALS: BP 129/72; PULSE 92; RESP 18; TEMP 97.2
--- NOTE | 2022-02-04 18:04 | P.MSEPDOC ---
Presenting Problems - Arrival Data Date of Arrival on Unit: 02/04/22 Time of Arrival on Unit: 08:57 Mode of Transport: Ambulatory - Complaint OB-Reason for Admission/Chief Complaint: Possible Onset of Labor, Pain Medical History - Information : 4 Para: 1 Term: 1 : 0 Abortions: Spontaneous or Elective: 2 Number of Living Children: 1 - Gestational Age Gestational Age by ROSEMARIE (wks/days): 31 Weeks and 2 Days Review of Systems - Review of Systems Constitutional: No problems Breast: No problems ENT: No problems Cardiovascular: No problems Respiratory: No problems Gastrointestinal: No problems Genitourinary: No problems Musculoskeletal: No problems Neurological: No problems Skin: No problems Vital Signs - Temperature Temperature: 97.2 F Temperature Source: Temporal Artery Scan - Pulse Right Pulse Rate: 92 Pulse Assessment Method: Pulse Oximetry - Respirations Respiratory Rate: 18 Oxygen Delivery Method: Room Air O2 Sat by Pulse Oximetry: 100 - Blood Pressure Right Arm Blood Pressure: 129/72 Blood Pressure Mean: 91 Blood Pressure Source: Automatic Cuff Medical Screen Scoring - Cervical Exam Dilation (cm): 2.5 Effacement (%): 50 Station: -2 Membranes: Intact - Uterine Contractions Intensity: Mild Resting: Soft to palpation - Assessment - Baby A Baseline FHR: 130 Heart Rate - NICHD Category: Category I (Normal) NST: Reactive - Assessment - Baby B Baseline FHR: 135 Heart Rate - NICHD Category: Category I (Normal) NST: Reactive Physician Notification - Physician Notified Physician Notified Date: 02/04/22 Physician Notified Time: 11:02 Physician: Myrna Littlejohn New Order Received: Yes Maternal Triage Index - Maternal Triage Index Presenting for scheduled procedure w/no complaint: No - Stat/Priority 1 Stat Priority 1: No - Urgent/Priority 2 Urgent Priority 2: Yes Provider Notified: Myrna Littlejohn Provider Notified Time: 11:02 Criteria Met for Priority 2: IV hydration complete. FHT's reactive/catagorey 1. [place] pattern unchanged. Pt c/o contractions unchanged. Orders to recheck cervix if no change discharge home with follow up instructions and to return to triage 02/05/22 @ 1000 for 2nd dose of celestone. If pt unsure of discharge give options to stay over night as OBV and call physician back. Orders read back and confirmed. Disposition - Disposition OB Disposition: Discharge to home Discharge Date: 02/04/22 Discharge Time: 11:02 I agree with the RN Medical Screening Exam: Yes Case reviewed; plan agreed upon as documented in EMR&OBIX.: Yes Diagnosis: LABOR WITHOUT DELIVERY, THIRD TRIMESTER
== END 2022-02-04 11:12 | disposition home or self-care (01) ==
LOC: FBPOP 08:57
PROVIDERS: ATTEND Obstetrics & Gynecology
DX: O60.03 Preterm labor without delivery, third trimester (principal); Z3A.31 31 weeks gestation of pregnancy; Z88.1 Allergy status to other antibiotic agents; Z88.4 Allergy status to anesthetic agent; Z88.6 Allergy status to analgesic agent; Z88.8 Allergy status to other drugs, medicaments and biological substances
CPT/HCPCS: 59025; 96360; 96372; G0463; J0702; 99214

== ENCOUNTER 2022-02-05 07:51 | Outpatient (CLI) | payer OTHER ==
[2022-02-05] MEDS ORDERED: BETAMET ACET-BETAMETH SOD PHOS 6 MG/ML MDV IM SCH (08:15)
[2022-02-05 09:21] VITALS: BP 114/62; PULSE 97; RESP 16; TEMP 98
--- NOTE | 2022-02-06 22:26 | P.MSEPDOC ---
Presenting Problems - Arrival Data Date of Arrival on Unit: 02/05/22 Time of Arrival on Unit: 07:51 Mode of Transport: Ambulatory - Complaint OB-Reason for Admission/Chief Complaint: Decreased Movement, Celestone Injection Medical History - Information : 4 Para: 1 Term: 1 : 0 Abortions: Spontaneous or Elective: 2 Number of Living Children: 1 - Gestational Age Gestational Age by ROSEMARIE (wks/days): 31 Weeks and 3 Days - History Complications: Multiple Review of Systems - Review of Systems Constitutional: No problems Breast: No problems ENT: No problems Cardiovascular: No problems Respiratory: No problems Gastrointestinal: No problems Genitourinary: No problems Musculoskeletal: No problems Neurological: No problems Skin: No problems Vital Signs - Temperature Temperature: 98 F Temperature Source: Oral - Pulse Right Sitting Pulse Rate: 97 Pulse Assessment Method: Automatic Cuff - Respirations Respiratory Rate: 16 Oxygen Delivery Method: Room Air - Blood Pressure Right Arm Blood Pressure: 114/62 Blood Pressure Mean: 79 Blood Pressure Source: Automatic Cuff Medical Screen Scoring - Assessment - Baby A Baseline FHR: 135 Heart Rate - NICHD Category: Category I (Normal) NST: Reactive - Assessment - Baby B Baseline FHR: 140 Heart Rate - NICHD Category: Category I (Normal) NST: Reactive Physician Notification - Physician Notified Physician Notified Date: 02/05/22 Physician Notified Time: 08:54 Physician: Myrna Littlejohn Order Received: Yes (d/c home) Maternal Triage Index - Urgent/Priority 2 Urgent Priority 2: Yes Provider Notified: Myrna Littlejohn Provider Notified Time: 08:54 Criteria Met for Priority 2: reactive nst, irregular contractions not felt per pt Disposition - Disposition OB Disposition: Discharge to home, Written follow up instructions reviewed Discharge Date: 02/05/22 Discharge Time: 08:58 I agree with the RN Medical Screening Exam: Yes Case reviewed; plan agreed upon as documented in EMR&OBIX.: Yes Diagnosis: LABOR WITHOUT DELIVERY, THIRD TRIMESTER Additional Diagnoses: Twin gestation
== END 2022-02-05 08:57 | disposition home or self-care (01) ==
LOC: FBPOP 07:51
PROVIDERS: ATTEND Obstetrics & Gynecology
DX: O60.03 Preterm labor without delivery, third trimester (principal); Z3A.31 31 weeks gestation of pregnancy; Z88.1 Allergy status to other antibiotic agents; Z88.6 Allergy status to analgesic agent
CPT/HCPCS: 59025; 96372; G0463; J0702; 99213

== ENCOUNTER 2022-02-13 12:48 | Outpatient (CLI) | payer OTHER ==
[2022-02-13] MEDS: LACTATED RINGERS 1,000 ML IV SCH ×2 (14:35→18:17)
[2022-02-13 15:05] LABS: Appearance,Urine Clear (Clear); Bilirubin,Urine Negative (Negative); Blood,Urine Negative (Negative); Color,Urine Yellow; Glucose,Urine (UA) Negative (Negative); Ketones,Urine Negative (Negative); Leukocyte Esterase,Urine Negative (Negative); Mucus,Urine Rare /hpf; Nitrite,Urine Negative (Negative); Protein,Urine 1+ (Negative); RBC,Urine 1 /hpf (0-5); Specific Gravity,Urine 1.011 (1.001-1.035); Squamous Epithelial Cell,Urine 2 /hpf (0-4); Urobilinogen,Urine <2.0 mg/dL (<2.0); WBC,Urine <1 /hpf (0-5)
[2022-02-13 16:31] VITALS: BP 120/58; PULSE 93; RESP 16; TEMP 99
--- NOTE | 2022-02-15 12:06 | P.MSEPDOC ---
Presenting Problems - Arrival Data Date of Arrival on Unit: 02/13/22 Time of Arrival on Unit: 12:48 Mode of Transport: Ambulatory - Complaint OB-Reason for Admission/Chief Complaint: Possible Onset of Labor, Pain Comment: sharp shooting vaginal pain and contractions 02/23 Medical History - Information : 4 Para: 1 Term: 1 : 0 Abortions: Spontaneous or Elective: 2 Number of Living Children: 1 - Gestational Age Gestational Age by ROSEMARIE (wks/days): 32 Weeks and 4 Days - History Complications: Multiple , Smoker Review of Systems - Review of Systems Constitutional: No problems Breast: No problems ENT: No problems Cardiovascular: No problems Respiratory: No problems Gastrointestinal: No problems Genitourinary: No problems Musculoskeletal: No problems Neurological: No problems Skin: No problems Vital Signs - Temperature Temperature: 99.0 F Temperature Source: Temporal Artery Scan - Pulse Right Pulse Rate: 93 Pulse Assessment Method: Automatic Cuff - Respirations Respiratory Rate: 16 Oxygen Delivery Method: Room Air O2 Sat by Pulse Oximetry: 98 - Blood Pressure Right Arm Sitting Blood Pressure: 120/58 Blood Pressure Mean: 78 Blood Pressure Source: Automatic Cuff Medical Screen Scoring - Cervical Exam Dilation (cm): 2 Effacement (%): 0 Station: -3 Membranes: Intact - Uterine Contractions Frequency From (mins): 8 Frequency To (mins): 10 Duration From (seconds): 40 Duration To (seconds): 70 Intensity: Moderate Resting: Soft to palpation - Assessment - Baby A Baseline FHR: 140 Heart Rate - NICHD Category: Category I (Normal) NST: Reactive - Assessment - Baby B Baseline FHR: 135 Heart Rate - NICHD Category: Category I (Normal) NST: Reactive Physician Notification - Physician Notified Physician Notified Date: 02/13/22 Physician Notified Time: 14:12 Physician: Myrna Littlejohn Order Received: Yes (Hydrate with iv fluids, recheck cervix at 1 hour) - Notification Comment Comment: rechecked at 1535 no cervical change, Doctor Annetta notified, IV fluids infused, pt contractions spaced out Maternal Triage Index - Maternal Triage Index Presenting for scheduled procedure w/no complaint: No - Stat/Priority 1 Stat Priority 1: No - Urgent/Priority 2 Urgent Priority 2: No - Prompt/Priority 3 Prompt Priority 3: Yes Criteria Met for Priority 3: 32 4/7 weeks vaginal pain, irregular contractions, no cervical change, reactive NSTs Disposition - Disposition OB Disposition: Triage, Discharge to home, Written follow up instructions reviewed Discharge Date: 02/13/22 Discharge Time: 15:45 I agree with the RN Medical Screening Exam: Yes Case reviewed; plan agreed upon as documented in EMR&OBIX.: Yes Diagnosis: FALSE LABOR BEFORE 37 COMPLETED WEEKS OF GEST, THIRD TRI
== END 2022-02-13 15:45 | disposition home or self-care (01) ==
LOC: FBPOP 12:48
PROVIDERS: ATTEND Obstetrics & Gynecology
DX: O47.03 False labor before 37 completed weeks of gestation, third trimester (principal); O99.333 Smoking (tobacco) complicating pregnancy, third trimester; F17.200 Nicotine dependence, unspecified, uncomplicated; Z3A.32 32 weeks gestation of pregnancy; Z88.1 Allergy status to other antibiotic agents; Z88.4 Allergy status to anesthetic agent; Z88.8 Allergy status to other drugs, medicaments and biological substances
CPT/HCPCS: 59025; 96360; 81001; G0463; 99214

== ENCOUNTER 2022-02-27 00:48 | Outpatient (CLI) | payer OTHER ==
[2022-02-27 03:31] VITALS: BP 123/76; PULSE 75; RESP 16; TEMP 97.1
--- NOTE | 2022-03-01 21:30 | P.MSEPDOC ---
Presenting Problems - Arrival Data Date of Arrival on Unit: 02/27/22 Time of Arrival on Unit: 00:48 Mode of Transport: Ambulatory - Complaint OB-Reason for Admission/Chief Complaint: Pain Comment: Patient arrives to triage with complaints of back pain, stomach cramping, and. thigh pain. Rates pain a /10. Patient is with twins. History of one vaginal delivery. Scheduled. for c/s delivery March 17. Medical History - Information : 4 Para: 1 Term: 1 : 0 Abortions: Spontaneous or Elective: 2 Number of Living Children: 1 - Gestational Age Gestational Age by ROSEMARIE (wks/days): 34 Weeks and 4 Days - History Complications: Multiple Review of Systems - Review of Systems Constitutional: No problems Breast: No problems ENT: No problems Cardiovascular: No problems Respiratory: No problems Gastrointestinal: No problems Genitourinary: No problems Musculoskeletal: No problems Neurological: No problems Skin: No problems Vital Signs - Temperature Temperature: 97.1 F Temperature Source: Temporal Artery Scan - Pulse Right Brachial Pulse Rate: 75 Pulse Assessment Method: Automatic Cuff - Respirations Respiratory Rate: 16 Oxygen Delivery Method: Room Air O2 Sat by Pulse Oximetry: 99 - Blood Pressure Right Arm Blood Pressure: 123/76 Blood Pressure Mean: 91 Blood Pressure Source: Automatic Cuff Medical Screen Scoring - Cervical Exam Dilation (cm): 2 Effacement (%): 60 Station: -2 Membranes: Intact - Uterine Contractions Frequency From (mins): 10 Frequency To (mins): 12 Duration From (seconds): 40 Duration To (seconds): 70 Intensity: Mild Resting: Soft to palpation - Assessment - Baby A Baseline FHR: 125 Heart Rate - NICHD Category: Category I (Normal) NST: Reactive - Assessment - Baby B Baseline FHR: 125 Heart Rate - NICHD Category: Category I (Normal) NST: Reactive Physician Notification - Physician Notified Physician Notified Date: 02/27/22 Physician Notified Time: 01:33 Physician: Myrna Littlejohn Order Received: Yes - Notification Comment Comment: RN spoke with Dr Littlejohn. RN relayed that cervical exam was unchanged from her. office visit on Thursday. patient was having some uterine iritability with contractions. every 10-12 minutes. Patient was advised to wear support belt for infants, increase. water intake and rest. Patient has office appointment scheduled for Thursday. Patient is. to be discharged per Dr. Littlejohn Maternal Triage Index - Maternal Triage Index Presenting for scheduled procedure w/no complaint: No - Stat/Priority 1 Stat Priority 1: No - Urgent/Priority 2 Urgent Priority 2: No - Prompt/Priority 3 Prompt Priority 3: Yes Criteria Met for Priority 3: >34 weeks multiple gestation with irregular contractions Disposition - Disposition OB Disposition: Discharge to home Discharge Date: 02/27/22 Discharge Time: 01:45 I agree with the RN Medical Screening Exam: Yes Case reviewed; plan agreed upon as documented in EMR&OBIX.: Yes Diagnosis: FALSE LABOR BEFORE 37 COMPLETED WEEKS OF GEST, THIRD TRI
== END 2022-02-27 01:45 | disposition home or self-care (01) ==
LOC: FBPOP 00:48
PROVIDERS: ATTEND Obstetrics & Gynecology
DX: O47.03 False labor before 37 completed weeks of gestation, third trimester (principal); Z3A.34 34 weeks gestation of pregnancy; Z88.1 Allergy status to other antibiotic agents; Z88.4 Allergy status to anesthetic agent; Z88.8 Allergy status to other drugs, medicaments and biological substances; F17.200 Nicotine dependence, unspecified, uncomplicated
CPT/HCPCS: 59025; G0463; 99213

== ENCOUNTER 2022-03-02 08:07 | Outpatient (CLI) | payer OTHER ==
[2022-03-02] MEDS ORDERED: LACTATED RINGERS 1,000 ML IV ONE (09:00)
[2022-03-02 09:57] VITALS: BP 124/73; RESP 16; TEMP 97
--- NOTE | 2022-03-06 20:53 | P.MSEPDOC ---
Presenting Problems - Arrival Data Date of Arrival on Unit: 03/02/22 Time of Arrival on Unit: 08:07 Mode of Transport: Ambulatory - Complaint OB-Reason for Admission/Chief Complaint: Possible Onset of Labor Medical History - Information : 4 Para: 1 Term: 1 : 0 Abortions: Spontaneous or Elective: 2 Number of Living Children: 1 - Gestational Age Gestational Age by ROSEMARIE (wks/days): 35 Weeks and 0 Days - History Comment: twins Review of Systems - Review of Systems Constitutional: No problems Breast: No problems ENT: No problems Cardiovascular: No problems Respiratory: No problems Gastrointestinal: No problems Genitourinary: No problems Musculoskeletal: No problems Neurological: No problems Skin: No problems Vital Signs - Temperature Temperature: 97.0 F Temperature Source: Temporal Artery Scan - Pulse Right Brachial Pulse Assessment Method: Automatic Cuff - Respirations Respiratory Rate: 16 Oxygen Delivery Method: Room Air - Blood Pressure Right Arm Blood Pressure: 124/73 Blood Pressure Mean: 90 Blood Pressure Source: Automatic Cuff Medical Screen Scoring - Cervical Exam Dilation (cm): 3 Effacement (%): 70 Station: -1 Membranes: Intact - Uterine Contractions Frequency From (mins): 5 Frequency To (mins): 6 Duration From (seconds): 60 Duration To (seconds): 80 Intensity: Moderate Resting: Soft to palpation - Assessment - Baby A Baseline FHR: 125 Heart Rate - NICHD Category: Category I (Normal) NST: Reactive - Assessment - Baby B Baseline FHR: 120 Heart Rate - NICHD Category: Category I (Normal) NST: Reactive Physician Notification - Physician Notified Physician Notified Date: 03/02/22 Physician Notified Time: 09:40 Physician: Kendal Pereyra New Order Received: Yes - Notification Comment Comment: d/c home Maternal Triage Index - Maternal Triage Index Presenting for scheduled procedure w/no complaint: No - Stat/Priority 1 Stat Priority 1: No - Urgent/Priority 2 Urgent Priority 2: Yes Provider Notified: Kendal Pereyra Provider Notified Time: 09:40 Criteria Met for Priority 2: twins ace Disposition - Disposition OB Disposition: Discharge to home Discharge Date: 03/02/22 Discharge Time: 09:40 I agree with the RN Medical Screening Exam: Yes Case reviewed; plan agreed upon as documented in EMR&OBIX.: Yes Diagnosis: PRIMARY INADEQUATE CONTRACTIONS
== END 2022-03-02 09:45 | disposition home or self-care (01) ==
LOC: FBPOP 08:07
PROVIDERS: ATTEND Obstetrics & Gynecology
DX: O62.0 Primary inadequate contractions (principal); Z3A.35 35 weeks gestation of pregnancy; Z88.1 Allergy status to other antibiotic agents; Z88.4 Allergy status to anesthetic agent; Z88.8 Allergy status to other drugs, medicaments and biological substances
CPT/HCPCS: 59025; 96360; G0463; 99214

== ENCOUNTER 2022-03-06 13:17 | Outpatient (CLI) | payer OTHER ==
[2022-03-06 14:10] VITALS: BP 116/56; PULSE 95; RESP 16; TEMP 98
--- NOTE | 2022-03-14 08:49 | P.MSEPDOC ---
Presenting Problems - Arrival Data Date of Arrival on Unit: 03/06/22 Time of Arrival on Unit: 13:17 Mode of Transport: Ambulatory - Complaint OB-Reason for Admission/Chief Complaint: Rule Out SROM Medical History - Information : 3 Para: 1 Term: 1 : 0 Abortions: Spontaneous or Elective: 1 Number of Living Children: 1 - Gestational Age Gestational Age by ROSEMARIE (wks/days): 35 Weeks and 4 Days Review of Systems - Review of Systems Constitutional: No problems Breast: No problems ENT: No problems Cardiovascular: No problems Respiratory: No problems Gastrointestinal: No problems Genitourinary: No problems Musculoskeletal: No problems Neurological: No problems Skin: No problems Vital Signs - Temperature Temperature: 98.0 F Temperature Source: Oral - Pulse Right Pulse Rate: 95 Pulse Assessment Method: Automatic Cuff - Respirations Respiratory Rate: 16 Oxygen Delivery Method: Room Air O2 Sat by Pulse Oximetry: 98 - Blood Pressure Right Arm Blood Pressure: 116/56 Blood Pressure Mean: 76 Blood Pressure Source: Automatic Cuff Medical Screen Scoring - Cervical Exam Dilation (cm): 3 Effacement (%): 50 Station: -2 Membranes: Intact - Assessment - Baby A Baseline FHR: 125 Heart Rate - NICHD Category: Category I (Normal) NST: Reactive - Assessment - Baby B Baseline FHR: 120 Heart Rate - NICHD Category: Category I (Normal) NST: Reactive Physician Notification - Physician Notified Physician Notified Date: 03/06/22 Physician Notified Time: 13:50 Physician: Myrna Littlejohn Order Received: Yes (discharge) Maternal Triage Index - Maternal Triage Index Presenting for scheduled procedure w/no complaint: No - Stat/Priority 1 Stat Priority 1: No - Urgent/Priority 2 Urgent Priority 2: No - Prompt/Priority 3 Prompt Priority 3: No - Non-Urgent/Priority 4 Non-Urgent Priority 4: Yes Criteria Met for Priority 4: MEt, Pt is not ruptured Disposition - Disposition OB Disposition: Discharge to home Discharge Date: 03/06/22 Discharge Time: 13:56 I agree with the RN Medical Screening Exam: Yes Case reviewed; plan agreed upon as documented in EMR&OBIX.: Yes Diagnosis: FALSE LABOR BEFORE 37 COMPLETED WEEKS OF GEST, THIRD TRI
== END 2022-03-06 14:00 | disposition home or self-care (01) ==
LOC: FBPOP 13:17
PROVIDERS: ATTEND Obstetrics & Gynecology
DX: O47.03 False labor before 37 completed weeks of gestation, third trimester (principal); Z3A.35 35 weeks gestation of pregnancy; Z88.1 Allergy status to other antibiotic agents; Z88.4 Allergy status to anesthetic agent; Z88.8 Allergy status to other drugs, medicaments and biological substances
CPT/HCPCS: 59025; 84112; G0463; 99213

== ENCOUNTER 2022-03-10 09:10 | Outpatient (CLI) | payer OTHER ==
[2022-03-10 10:17] VITALS: BP 130/78; PULSE 72; RESP 18; TEMP 97.3
--- NOTE | 2022-03-14 08:47 | P.MSEPDOC ---
Presenting Problems - Arrival Data Date of Arrival on Unit: 03/10/22 Time of Arrival on Unit: 09:10 Mode of Transport: Wheelchair - Complaint OB-Reason for Admission/Chief Complaint: Pain Comment: patient states she has constant back pain rating 8/10 that is constant and radiates to pelvis Medical History - Information : 3 Para: 1 Term: 1 : 0 Abortions: Spontaneous or Elective: 1 Number of Living Children: 1 - Gestational Age Gestational Age by ROSEMARIE (wks/days): 36 Weeks and 1 Days - History Complications: Multiple Review of Systems - Review of Systems Constitutional: No problems Breast: No problems ENT: No problems Cardiovascular: No problems Respiratory: No problems Gastrointestinal: No problems Genitourinary: No problems Musculoskeletal: No problems Neurological: No problems Skin: No problems Vital Signs - Temperature Temperature: 97.3 F Temperature Source: Axillary - Pulse Pulse Oximetery Pulse Rate: 72 Pulse Assessment Method: Pulse Oximetry - Respirations Respiratory Rate: 18 Oxygen Delivery Method: Room Air - Blood Pressure Right Arm Blood Pressure: 130/78 Blood Pressure Mean: 95 Blood Pressure Source: Automatic Cuff Medical Screen Scoring - Cervical Exam Dilation (cm): 3.5 Effacement (%): 70 Station: -2 Membranes: Intact - Uterine Contractions Intensity: Moderate Resting: Soft to palpation - Assessment - Baby A Baseline FHR: 130 Heart Rate - NICHD Category: Category I (Normal) NST: Reactive - Assessment - Baby B Baseline FHR: 135 Heart Rate - NICHD Category: Category I (Normal) NST: Reactive Physician Notification - Physician Notified Physician Notified Date: 03/10/22 Physician Notified Time: 09:56 Physician: Myrna Littlejohn Order Received: Yes - Notification Comment Comment: perform SVE and if same as last exam then she can be discharged and sent to office for appt. if patient wants to wait the hour and get rechecked she can. if further dialated then call dr. montes at office Maternal Triage Index - Maternal Triage Index Presenting for scheduled procedure w/no complaint: No - Stat/Priority 1 Stat Priority 1: No - Urgent/Priority 2 Urgent Priority 2: No - Prompt/Priority 3 Prompt Priority 3: No - Non-Urgent/Priority 4 Non-Urgent Priority 4: Yes Criteria Met for Priority 4: patient complains of severe back pain 8/10 radiates to pelvis Disposition - Disposition OB Disposition: Physician follow up in office, Discharge to home, Written follow up instructions reviewed Discharge Date: 03/10/22 Discharge Time: 10:08 I agree with the RN Medical Screening Exam: Yes Case reviewed; plan agreed upon as documented in EMR&OBIX.: Yes Diagnosis: FALSE LABOR BEFORE 37 COMPLETED WEEKS OF GEST, THIRD TRI
== END 2022-03-10 10:08 | disposition home or self-care (01) ==
LOC: FBPOP 09:10
PROVIDERS: ATTEND Obstetrics & Gynecology
DX: O47.03 False labor before 37 completed weeks of gestation, third trimester (principal); Z3A.36 36 weeks gestation of pregnancy; Z88.1 Allergy status to other antibiotic agents; Z88.4 Allergy status to anesthetic agent; Z88.8 Allergy status to other drugs, medicaments and biological substances
CPT/HCPCS: 59025; G0463; 99213

== ENCOUNTER 2022-03-17 05:36 | Inpatient (IN) | payer OTHER ==
--- NOTE | 2022-03-16 20:54 | P.HPOB ---
History of Present Illness H&P Date: 03/16/22 Chief Complaint: Scheduled primary section with possible tubal ligation This is a 32 y.o. female, 3, para 1, with an estimated date of confinement of 04/06/2022, estimated gestational age of 37-1/7 weeks with twin gestations presents for primary low transverse section with possible bilateral tubal ligation. She complains of pelvic pressure, frequent contractions and back pain. course is complicated by dichoriontic diamniotic twin gestation. She has seen M and has been getting regular growth ultrasounds. Growth has been concordant and both twins have been vertex. She still wants section. She did have 2 doses of Celestone at about 31 weeks due to +FFN. labs: Hepatitis B surface antigen-neg Xxmyvwi-tqo-wkvnpt RPR-NR HIV-NR Blood type-B+ Antibody screen-neg Hemoglobin-11.6 Toxoplasma-neg Random glucose-55 Quad-neg 1 hr. GTT-81 GBS-neg OB Hx: . History of 1 vaginal delivery at term. History of 1 miscarriage. [employer] Hx: Hx chlamydia, GC in past. History of HGSIL, s/p LEEP. Social Hx: Single, boyfriend. Works at a motel. Review of Systems Constitutional: Denies chills, Denies fever Eyes: denies blurred vision, denies pain Ears, nose, mouth and throat: Denies headache, Denies sore throat Cardiovascular: Denies chest pain, Denies shortness of breath Respiratory: Denies cough Gastrointestinal: Reports abdominal pain, Denies diarrhea, Denies nausea, Denies vomiting Genitourinary: Reports pelvic pain, Reports Musculoskeletal: Reports low back pain Integumentary: Denies pruritus, Denies rash Neurological: Denies numbness, Denies weakness Psychiatric: Reports anxiety, Reports depression, Reports mood swings Past Medical History Additional Past Medical History / Comment(s): Cervical dysplasia; Psoriasis History of Any Multi-Drug Resistant Organisms: None Reported Additional Past Surgical History / Comment(s): leep procedure Past Anesthesia/Blood Transfusion Reactions: No Reported Reaction Past Psychological History: Anxiety, Bipolar, Depression Smoking Status: Current every day smoker Past Alcohol Use History: None Reported Past Drug Use History: None Reported - Past Family History Mother Family Medical History: Cancer, Diabetes Mellitus Medications and Allergies Home Medications Medication Instructions Recorded Confirmed Type Xhp-Nylg-Dzvuu Acid 1 cap PO DAILY 09/03/21 03/17/22 History [-U Capsule (formulary)] RX: Aspirin EC [Ecotrin Low Dose] 81 mg PO DAILY 11/13/21 03/17/22 History Famotidine [Pepcid] 10 mg PO BID 12/19/21 03/17/22 History Ferrous Sulfate [Iron (65 MG 1 tab PO DAILY 03/10/22 03/17/22 History Elemental)] Allergies Allergy/AdvReac Type Severity Reaction Status Date / Time clindamycin Allergy Anaphylaxis Verified 03/17/22 05:48 lamotrigine [From Lamictal] Allergy Anaphylaxis Verified 03/17/22 05:48 lidocaine Allergy Anaphylaxis Verified 03/17/22 05:48 Exam Osteopathic Statement: *. No significant issues noted on an osteopathic structural exam other than those noted in the History and Physical/Consult. HEENT: within normal limits Heart: regular rate and rhythm Lungs: clear to auscultation bilaterally Abdomen: Cervix: 4 cm/70%/-1 heart tones: 130's baby A, 140's baby B Extremities: negative Lukasz's Results Result Diagrams: 03/17/22 06:00 Assessment and Plan (1) 37 weeks gestation of Current Visit: No Status: Acute Code(s): Z3A.37 - 37 WEEKS GESTATION OF SNOMED Code(s): 37444108 (2) Twin delivery by Current Visit: No Status: Acute Code(s): O30.009 - TWIN , UNSP NUM PLCNTA & AMNIO SACS, UNSP TRIMESTER SNOMED Code(s): 673267336 (3) Family planning Current Visit: No Status: Acute Code(s): Z30.09 - ENCOUNTER FOR OTH GENERAL CNSL AND ADVICE ON CONTRACEPTION SNOMED Code(s): 431278588 Plan: Proceed with primary low transverse section, possible tubal ligation. I have discussed the risks, benefits, and alternative therapies for the above- mentioned procedure and for both sedation/anesthesia as well as necessary blood products administration, if indicated, as they pertain to this patient. The patient has indicated her understanding and acceptance of the risks and procedures discussed.
[2022-03-17] MEDS ORDERED: LACTATED RINGERS 1,000 ML IV ONE (05:48)
[2022-03-17] MEDS ORDERED: CITRIC ACID-SODIUM CITRATE 15 ML CUP PO ONE (05:48)
[2022-03-17 06:09] LABS: Basophils % (A) 0 %; Eosinophils # (A) 0.1 k/uL (0-0.7); Eosinophils % (A) 1 %; HCT 28.7 % (34.0-46.0); HGB 9.9 gm/dL (11.4-16.0); Lymphocytes # (A) 1.7 k/uL (1.0-4.8); Lymphocytes % (A) 24 %; MCH 34.6 pg (25.0-35.0); MCHC 34.4 g/dL (31.0-37.0); MCV 100.8 fL (80.0-100.0); Macrocytosis Slight; Mean Platelet Volume 8.2; Monocytes # (A) 0.4 k/uL (0-1.0); Monocytes % (A) 5 %; Neutrophils # (A) 4.9 k/uL (1.3-7.7); Neutrophils % (A) 67 %; Platelet Count 230 k/uL (150-450); RBC 2.85 m/uL (3.80-5.40); WBC 7.2 k/uL (3.8-10.6)
[2022-03-17] MEDS: LACTATED RINGERS 1,000 ML IV SCH ×3 (07:26→22:18)
--- NOTE | 2022-03-17 08:48 | P.OP ---
Date of Procedure: 03/17/22 Preoperative Diagnosis: 1. Twin gestation at 37 and one sevenths weeks. 2. Family planning. Postoperative Diagnosis: Same Procedure(s) Performed: Primary low transverse section Bilateral partial salpingectomy Anesthesia: spinal (Duramorph) Surgeon: Myrna Littlejohn Mysql Database Developer #1: Prabhu Shahid Estimated Blood Loss (ml): 650 Pathology: other (Placenta, portions of right and left fallopian tubes) Condition: stable Disposition: floor Indications for Procedure: This is a 32-year-old female 3 para 1 with twin gestation at 37 and one sevenths weeks who presents for scheduled primary section with bilateral partial salpingectomy for family planning. I have discussed the risks, benefits, and alternative therapies for the above- mentioned procedure and for both sedation/anesthesia as well as necessary blood products administration, if indicated, as they pertain to this patient. The patient has indicated her understanding and acceptance of the risks and procedures discussed. Operative Findings: Baby A is a viable male in the vertex presentation with nuchal cord times one and infant weight of 5 lbs. 7 oz. Baby B is a viable male in the vertex presentation with scores of 9 at 1 minute and 9 at 5 minutes and weight of 5 lbs. 15 oz. Normal uterus tubes and ovaries are noted. Description of Procedure: The patient is taken to the operating room where she is placed in the dorsal supine position with leftward tilt after spinal Duramorph anesthesia is given. She is prepped and draped in the normal sterile fashion. Skin was tested and found to be adequately anesthetized. A Pfannenstiel skin incision was made with a scalpel. A second knife was used to carry the incision down to the underlying layer of fascia. The fascia was nicked in the midline with a scalpel and then extended laterally bilaterally with Gilman scissors. The anterior lip of the fascia was grasped with 2 Marion clamps and then dissected off the underlying rectus muscle in the midline with Gilman scissors. The inferior aspect of the fascial incision was grasped with 2 Marion clamps and dissected off the underlying rectus muscle and the midline with Gilman scissors. Next the peritoneum layer was tented up with 2 hemostats and then entered sharply with the scalpel. The incision is extended superiorly and inferiorly with Metzenbaum scissors. Next a DeLee retractor is placed. The vesicouterine peritoneum is entered sharply with Metzenbaum scissors and extended laterally bilaterally with Metzenbaum scissors and then the bladder flap is pushed inferiorly. The lower uterine segment is incised in transverse fashion with the scalpel and then bluntly entered with a hemostat. Clear fluid is noted. The incision was then extended laterally bilaterally with 2 fingers. Next baby A's head is delivered through the incision. Nuchal cord times one was reduced around the 's head. Nose and mouth are bulb suctioned. The remainder of the infant is easily delivered and placed on mother's abdomen. Cord is clamped and cut. is taken to warmer by nursing staff. Baby A is a viable male infant. Next baby B is palpated in the vertex presentation to maternal left side. The infant's head is brought to the incision and then the bag of water is ruptured with a hemostat. Clear fluid is noted. The 's head is then delivered through the incision followed by the remainder the . Nose and mouth were bulb suctioned at the incision. Cord is clamped and cut and baby B is then taken to warmer for evaluation by nursing staff. Baby B is a viable male infant. Uterine fundus is gently massaged and placentas are delivered manually. They are marked according to A and B for pathology. Uterus is exteriorized and cleared of all clots and debris. Uterine incision is closed with 0 Vicryl suture in a running locked fashion. A second layer of 0 Vicryl suture is used in a running fashion for hemostasis. Once adequate hemostasis as assured, the vesicouterine peritoneum is reapproximated with 2-0 Vicryl suture in a running fashion. Next attention is turned to the tubes. The right fallopian tube is grasped in the midportion with a hemostat. The mesosalpinx is entered with Bovie cautery. 0 Vicryl suture is tied 2 times around both the proximal and distal portion of the tube. The knuckle of tube is then removed with Metzenbaum scissors. The ends of the tube were then cauterized with Bovie cautery. The same procedure is carried out on the left fallopian tube. Posterior cul-de-sac is suctioned of all clots and debris. Uterus is returned to the abdomen. Incision is noted to be hemostatic. Both tubal sites are visualized and appeared hemostatic. Peritoneal layer is closed with 0 Vicryl suture in a running fashion. Muscle layer is reapproximated with 0 Vicryl suture in interrupted fashion. Fascia layer is then closed with 0 PDS suture with 2 sutures meeting in the midline and the knots buried in either side and in the midline. The subcutaneous tissue was then closed with 2-0 Vicryl suture. Skin layer was then closed with meliton. All sponge and needle counts are correct. The patient is taken to recovery room in stable condition.
[2022-03-17] MEDS ORDERED: diphenhydrAMINE 50 MG CAP PO PRN (08:54)
[2022-03-17] MEDS ORDERED: diphenhydrAMINE 25 MG CAP PO PRN (08:54)
[2022-03-17] MEDS ORDERED: HYDROmorphone 1 MG/ML 1 ML SYRINGE IVP PRN (08:54)
[2022-03-17] MEDS ORDERED: diphenhydrAMINE 50 MG/ML 1 ML VIAL IVP PRN ×2 (08:54)
[2022-03-17] MEDS ORDERED: METOCLOPRAMIDE 5 MG/ML 2 ML VIAL IVP PRN (08:54)
[2022-03-17] MEDS ORDERED: SIMETHICONE 80 MG CHEWABLE PO PRN (08:54)
[2022-03-17] MEDS ORDERED: NALOXONE 0.4 MG/ML 1 ML VIAL IV PRN (08:54)
[2022-03-17] MEDS ORDERED: OXYTOCIN 30 UNITS/500 ML NS 30 UNIT in SALINE 1 500ML.BAG IV SCH (08:54)
[2022-03-17] MEDS ORDERED: LANOLIN CREAM 5 GM TUBE TOPICAL PRN (08:54)
[2022-03-17] MEDS ORDERED: ZOLPIDEM 5 MG TAB PO PRN (08:54)
[2022-03-17] MEDS ORDERED: ONDANSETRON 4 MG/2 ML VIAL IVP PRN (08:54)
[2022-03-17] MEDS ORDERED: HYDROmorphone 0.5 MG/0.5 ML SYRINGE IVP PRN (08:54)
[2022-03-17] MEDS ORDERED: MEASLES-MUMPS-RUBELLA VACC/PF 12,500 UNIT/0.5 ML VIAL SQ ONE (08:54)
[2022-03-17] MEDS: SENNOSIDES-DOCUSATE SODIUM 1 EACH TAB PO SCH (09:10)
[2022-03-17] MEDS: ACETAMINOPHEN IV (For NPO) 1,000 MG in EMPTY BAG 1 BAG IVPB SCH ×2 (12:09→18:08)
[2022-03-17] MEDS: ACETAMINOPHEN TAB 500 MG TAB PO SCH ×2 (12:10→17:56)
[2022-03-17] MEDS: KETOROLAC 15 MG/ML 1 ML VIAL IVP SCH ×2 (15:40→21:32)
[2022-03-17] MEDS: IBUPROFEN 600 MG TAB PO SCH (16:39)
[2022-03-18] MEDS: ACETAMINOPHEN TAB 500 MG TAB PO SCH ×4 (00:08→20:08)
[2022-03-18] MEDS: SENNOSIDES-DOCUSATE SODIUM 1 EACH TAB PO SCH ×3 (00:52→20:08)
[2022-03-18] MEDS: IBUPROFEN 600 MG TAB PO SCH ×3 (03:57→23:30)
[2022-03-18] MEDS: FAMOTIDINE 20 MG TAB PO SCH ×3 (05:51→20:08)
[2022-03-18 06:39] LABS: Basophils % (A) 0 %; Eosinophils # (A) 0.1 k/uL (0-0.7); Eosinophils % (A) 1 %; HCT 21.9 % (34.0-46.0); Lymphocytes # (A) 1.2 k/uL (1.0-4.8); Lymphocytes % (A) 21 %; MCH 32.7 pg (25.0-35.0); MCHC 32.6 g/dL (31.0-37.0); MCV 100.5 fL (80.0-100.0); Macrocytosis Slight; Mean Platelet Volume 8.7; Monocytes # (A) 0.4 k/uL (0-1.0); Monocytes % (A) 6 %; Neutrophils # (A) 3.9 k/uL (1.3-7.7); Neutrophils % (A) 69 %; Platelet Count 192 k/uL (150-450); RBC 2.17 m/uL (3.80-5.40); RDW 13.7 % (11.5-15.5); WBC 5.7 k/uL (3.8-10.6)
[2022-03-18 06:42] LABS: HGB 7.1 gm/dL (11.4-16.0)
--- NOTE | 2022-03-18 07:39 | P.PNOBGPC ---
Subjective - Subjective Principal diagnosis: Status post primary section with tubal ligation POD#1 Interval history: Patient is doing well. She is passing flatus but no bowel movement yet. She is ambulating. She is urinating without difficulty. Patient reports: Reports appetite normal, Reports voiding normally, Reports pain well controlled, Reports ambulating normally : bottle feeding Objective - Vital Signs Latest vital signs: Vital Signs Temp Pulse Resp BP Pulse Ox 03/18/22 04:00 97.8 F 79 18 119/72 97 03/18/22 00:00 97.9 F 74 17 109/70 99 03/17/22 20:00 98.1 F 74 17 109/69 97 03/17/22 16:00 97.8 F 70 15 109/68 98 03/17/22 12:00 97.6 F 72 15 118/68 98 03/17/22 10:50 96.8 F L 75 16 114/56 97 03/17/22 10:20 60 15 102/61 99 03/17/22 09:50 69 16 119/71 100 03/17/22 09:35 62 15 114/62 100 03/17/22 09:20 74 15 116/66 100 03/17/22 09:05 86 16 118/57 97 03/17/22 08:50 96.8 F L 75 16 114/56 97 Intake and Output 03/17/22 03/18/22 03/18/22 22:59 06:59 14:59 Output Total 500 1500 Balance -500 -1500 Output: Urine 500 1500 Straight 700 Other: Voiding Method Indwelling Catheter # Voids 0 - Exam Extremities: Present: normal. Absent: tenderness Abdomen: Present: normal appearance, soft (Positive bowel sounds 4). Absent: distention, tenderness Incision: Present: normal, dry, intact. Absent: erythematous Uterus: Present: normal, firm. Absent: tenderness - Labs Labs: Abnormal Lab Results - Last 24 Hours (Table) 03/18/22 Range/Units 06:12 RBC 2.17 L (3.80-5.40) m/uL Hgb 7.1 L D (11.4-16.0) gm/dL Hct 21.9 L (34.0-46.0) % MCV 100.5 H (80.0-100.0) fL Assessment and Plan Assessment: Status post primary low transverse section with bilateral partial salpingectomy postoperative day #1 (1) 37 weeks gestation of Current Visit: No Status: Acute Code(s): Z3A.37 - 37 WEEKS GESTATION OF SNOMED Code(s): 12920395 (2) Twin delivery by Current Visit: No Status: Acute Code(s): O30.009 - TWIN , UNSP NUM PLCNTA & AMNIO SACS, UNSP TRIMESTER SNOMED Code(s): 766913277 (3) Family planning Current Visit: No Status: Acute Code(s): Z30.09 - ENCOUNTER FOR OT GENERAL CNSL AND ADVICE ON CONTRACEPTION SNOMED Code(s): 535390497 Plan: Continue with postoperative and care. Will advance diet as tolerated.
[2022-03-18] MEDS: FERROUS SULFATE 325 MG TAB PO SCH ×2 (09:04→09:06)
[2022-03-18] MEDS: PRENATAL VIT-IRON-FOLIC ACID 1 EACH TABLET PO SCH (09:16)
--- NOTE | 2022-03-18 13:16 | P.PN ---
Progress Note - Text 03/18/22 633am Status post with spinal Duramorph. Patient seen and evaluated, patient has a VAS of 3 with no complains of nausea vomiting or pruritus. Patient doing well with no anesthesia complications
[2022-03-19] MEDS: ACETAMINOPHEN TAB 500 MG TAB PO SCH ×2 (02:28→08:28)
[2022-03-19] MEDS: IBUPROFEN 600 MG TAB PO SCH (06:33)
[2022-03-19] MEDS ORDERED: OXYTOCIN 30 UNITS/500 ML NS BAG IV ONE (07:56)
[2022-03-19] MEDS ORDERED: ONDANSETRON 4 MG/2 ML VIAL ONE (07:56)
[2022-03-19] MEDS ORDERED: NALBUPHINE 10 MG/ML (1 ML AMP) ONE (07:56)
[2022-03-19] MEDS ORDERED: MORPHINE SULFATE (PF) 0.3 MG/0.3 ML SYR ONE (07:56)
[2022-03-19] MEDS ORDERED: KETOROLAC 15 MG/ML 1 ML VIAL ONE (07:56)
--- NOTE | 2022-03-19 07:57 | P.DS ---
Providers Date of admission: 03/17/22 05:36 Expected date of discharge: 03/19/22 Attending physician: Myrna Littlejohn Primary care physician: Stated None - Discharge Diagnosis(es) (1) 37 weeks gestation of Current Visit: No Status: Acute (2) Twin delivery by Current Visit: No Status: Acute (3) Family planning Current Visit: No Status: Acute Hospital Course: This is a 32-year-old female 3 para 1 at 37-0/7 weeks who presented for primary section with bilateral partial salpingectomy due to twin gestation. She delivered baby A which was a viable male infant in vertex presentation with scores of 8 at 1 minute and 9 at 5 minutes and weight of 5 lbs. 7 oz. and baby B was in the vertex presentation with scores of 9 at 1 minute and 9 at 5 minutes and weight of 5 lbs. 15 oz. on 03/17/2022. Her postoperative and courses have been uncomplicated. She is passing flatus and bowel movement. Her pain is fairly well controlled with ibuprofen and Tylenol. Lochia has been minimal. She is bottle feeding. Vital signs are stable. Abdomen is soft with positive bowel sounds 4. Incision is clean dry and intact with meliton in place. Extremities show negative Homans. Impression is status post primary low transverse section with bilateral partial salpingectomy postoperative day #2. Plan is to discharge home today. Routine postoperative and instructions are given. She will be given a prescription for ibuprofen. She is advised follow- up in the office in 6 weeks for check and in 2 weeks for a postoperative check. Belsano will be removed and Steri-Strips placed prior to discharge. Is advised to call the office if she has any further questions or concerns prior to her appointment time. Procedures: Primary low transverse section with bilateral partial salpingectomy on 03/17/2022 Patient Condition at Discharge: Stable Plan - Discharge Summary New Discharge Prescriptions: New RX: Ibuprofen [Motrin] 600 mg PO Q6H #60 tab No Action Pxn-Milw-Oabcw Acid [-U Capsule (formulary)] 1 cap PO DAILY RX: Aspirin EC [Ecotrin Low Dose] 81 mg PO DAILY Famotidine [Pepcid] 10 mg PO BID Ferrous Sulfate [Iron (65 MG Elemental)] 1 tab PO DAILY Discharge Medication List Iug-Lvgq-Tcboz Acid [-U Capsule (formulary)] 1 cap PO DAILY 09/03/21 [History] RX: Aspirin EC [Ecotrin Low Dose] 81 mg PO DAILY 11/13/21 [History] Famotidine [Pepcid] 10 mg PO BID 12/19/21 [History] Ferrous Sulfate [Iron (65 MG Elemental)] 1 tab PO DAILY 03/10/22 [History] RX: Ibuprofen [Motrin] 600 mg PO Q6H #60 tab 03/19/22 [Rx] Follow up Appointment(s)/Referral(s): Myran Littlejohn DO [Doctor of Osteopathic Medicine] - 2 Weeks Activity/Diet/Wound Care/Special Instructions: Instructions 1. Do not begin any exercise program for 3 weeks. 2. Do not resume sexual relations for 3 weeks or longer if uncomfortable. 3. You may take tub baths or showers at any time. 4. You may use tampons if desired after 3 weeks. 5. Keep the area of episiotomy (stitches) clean and dry. 6. If you are not nursing, wear a good fitting, supportive bra during the day and limit fluid intake for at least 1 week to prevent breast engorgement. 7. Call the office, [phone], within the next week to make appointment for your 6 week checkup if it has not already been made. 8. Report any of the following occurrences to the doctor promptly: a. Heavy, excessive bleeding b. Chills, fever c. Burning or frequency of urination d. Pain or redness and breasts if nursing e. Increasing pain or swelling in episiotomy (stitches). In addition to the above instructions, the following additional should be followed: 1. No heavy lifting or straining (exercising) until after 6 week checkup. 2. Keep abdominal incision clean and dry: You may wear a dressing if more comfortable. 3. Make office appointment for 10 days after going home or as instructed by her doctor. Discharge Disposition: HOME SELF-CARE
[2022-03-19] MEDS: PRENATAL VIT-IRON-FOLIC ACID 1 EACH TABLET PO SCH (08:28)
[2022-03-19] MEDS: FERROUS SULFATE 325 MG TAB PO SCH (08:28)
[2022-03-19] MEDS: SENNOSIDES-DOCUSATE SODIUM 1 EACH TAB PO SCH (08:29)
[2022-03-19 09:30] VITALS: BP 128/76; PULSE 81; RESP 16; TEMP 97.8
[2022-03-19] MEDS: FAMOTIDINE 20 MG TAB PO SCH (10:38)
== END 2022-03-19 10:15 | disposition home or self-care (01) | DRG 785 ==
LOC: 4FBP 05:36
PROVIDERS: ADMIT Obstetrics & Gynecology; ATTEND Obstetrics & Gynecology
PROC: 3E0134Z Introduction of Serum, Toxoid and Vaccine into Subcutaneous Tissue, Percutaneous Approach (ICD-10-PCS; 2022-03-17)
PROC: 0UB70ZZ Excision of Bilateral Fallopian Tubes, Open Approach (ICD-10-PCS; principal; 2022-03-17 08:00)
PROC: 10D00Z1 Extraction of Products of Conception, Low, Open Approach (ICD-10-PCS; principal; 2022-03-17 08:00)
DX: O30.043 Twin pregnancy, dichorionic/diamniotic, third trimester (principal); Z37.2 Twins, both liveborn; O69.81X1 Labor and delivery complicated by cord around neck, without compression, fetus 1; O99.334 Smoking (tobacco) complicating childbirth; F17.200 Nicotine dependence, unspecified, uncomplicated; Z28.310 Unvaccinated for COVID-19; Z30.2 Encounter for sterilization; Z23 Encounter for immunization; Z3A.37 37 weeks gestation of pregnancy; L40.9 Psoriasis, unspecified; Z79.82 Long term (current) use of aspirin; Z79.899 Other long term (current) drug therapy; Z86.59 Personal history of other mental and behavioral disorders; Z87.410 Personal history of cervical dysplasia; Z83.3 Family history of diabetes mellitus
CPT/HCPCS: 85025; 86850; 86900; 86901; 88302; 88307; 90707